=== PATIENT | female | born 1945 | race Caucasian/White ===

== ENCOUNTER 2016-11-13 13:49 | Observation (INO) | payer OTHER, MEDICARE ==
[~2016-11-13] VITALS: Ht 154.9 cm; Wt 54.9 kg
--- NOTE | ~2016-11-13 | EKG ---
[place] [address] [address] [address] ELECTROCARDIOGRAM REPORT Name: CLAU CASTILLO Room #: 412-P [facility]..#: [id number] Admission: 11/13/16 Attend Phys: Hari Garzon DO Discharge: 11/14/16 Date of : 49 Report #: [id number] THIS REPORT FOR: //name// [facility] ED Test Date: 2016-11-13 Test Time: 14:16:10 Pat Name: CLAU CASTILLO Department: Room: 412 Gender: F Health Program Director: MZOOK : 1945 Requested By: Chelly Clifton Order Number: [id number] MD: Marc Bedoya Measurements Intervals [place] Rate: 79 P: 43 KS: 128 QRS: -14 QRSD: 108 T: 27 QT: 471 QTc: 541 Interpretive Statements Sinus rhythm Biatrial enlargement Left ventricular hypertrophy Artifact Electronically Signed On 11-15-2016 8:52:18 FILEMAKER DEVELOPER by Marc Bedoya [email or web address] <ELECTRONICALLY SIGNED> By: Marc Bedoya MD 11/15/16 0852 D: 02/1415 15 Marc Bedoya MD /JANIA
[~2016-11-13 13:49] MED LIST: ADDERALL 30 MG30 MG PO; ADULT LOW DOSE81 MG PO; ALBUTEROL2.5 MG/0.5 INH; ALPRAZOLAM 0.50.5 M1 PO; ASPIR 8181 M1 PO; CIPRO250 M1 PO; COLACE100 MG PO; FLOMAX0.4 MG PO; FOLIC ACID1 MG PO; HYDROCODONE-AP1 EAC6 PO; IBUPROFEN 400400 M1 PO; IRON325 PO; LEVAQUIN 750 M750 MG PO; METAXALONE800 MG PO; MIRALAX17 GM PO; NORVASC5 M1 PO; OXYCODONE HCL10 MG PO; OXYCONTIN10 M1 PO; OXYCONTIN20 M1 PO; PERCOCET 10-321 EACH PO; PREDNISONE 20 M20 MG PO; PRILOSEC 20 MG20 MG PO; PROZAC20 MG PO; ROXICODONE5 MG PO; TESSALON PERLE100 MG PO; TUMS PO; WELLBUTRIN 100100 MG; XANAX 0.5 MG0.5 MG PO
[2016-11-13 13:50] VITALS: BP 144/77
[2016-11-13 14:15] LABS: HEMATOCRIT 41.2 % (37.0-47.0); HEMOGLOBIN 13.5 gm/dL (12.0-15.0); MCH 28.5 pg (26.0-34.0); MCHC 32.8 g/dL (28.0-37.0); MCV 86.8 fL (80.0-100.0); PLATELET COUNT 209 thou/uL (150-400); RBC 4.74 mil/uL (4.20-5.00); RDW 15.3 % (10.5-14.5); WBC 5.7 thou/uL (4.0-11.0)
[2016-11-13 14:28] LABS: ANION GAP 9 mmol/L (7-16); BUN 20 mg/dL (7-18); CALCIUM 9.4 mg/dL (8.5-10.1); CHLORIDE 103 mmol/L (98-107); CO2 28 mmol/L (21-32); CREATININE 0.9 mg/dL (0.6-1.3); GLUCOSE 105 mg/dL (70-99); POTASSIUM 4.4 mmol/L (3.5-5.1); SODIUM 140 mmol/L (136-145)
[2016-11-13 14:29] LABS: MANUAL DIFF YES
[2016-11-13 14:35] LABS: ALBUMIN 3.6 g/dL (3.4-5.0); ALKALINE PHOSPHATASE 103 U/L (46-116); DIRECT BILIRUBIN < 0.1 mg/dL (<0.1-0.3); NT-PRO BRAIN NAT PEPTIDE 153 pg/mL (<300); SGOT 20 U/L (15-37); SGPT 29 U/L (30-65); TOTAL BILIRUBIN 0.4 mg/dL (<0.1-1.0); TOTAL PROTEIN 6.9 g/dL (6.4-8.2); TROPONIN-I < 0.04 ng/mL (<0.04-0.07)
[2016-11-13 15:07] LABS: ABSOLUTE NEUTROPHILS 2.8 thou/uL (1.4-8.2); TOTAL CELL COUNT 100
[2016-11-13 16:40] VITALS: BP 136/65
[2016-11-13 17:35] VITALS: BP 118/50
[2016-11-13 19:23] LABS: URINE BILIRUBIN NEGATIVE (Negative); URINE BLOOD NEGATIVE (Negative); URINE COLOR YELLOW; URINE GLUCOSE-RANDOM* NEGATIVE (Negative); URINE KETONES NEGATIVE (Negative); URINE LEUKOCYTES-REFLEX NEGATIVE (Negative); URINE PROTEIN (DIPSTICK) NEGATIVE (Negative); URINE SPECIFIC GRAVITY 1.015 (1.003-1.035); URINE UROBILINOGEN 0.2 E.U./dl (0.2-1.0)
[2016-11-13 19:50] VITALS: BP 135/63
[2016-11-14 02:10] LABS: HEMATOCRIT 40.6 % (37.0-47.0); HEMOGLOBIN 13.3 gm/dL (12.0-15.0); MCH 28.9 pg (26.0-34.0); MCHC 32.8 g/dL (28.0-37.0); MCV 88.1 fL (80.0-100.0); PLATELET COUNT 183 thou/uL (150-400); RBC 4.61 mil/uL (4.20-5.00); RDW 15.3 % (10.5-14.5); WBC 6.4 thou/uL (4.0-11.0)
[2016-11-14 02:12] LABS: MANUAL DIFF YES
[2016-11-14 02:19] LABS: CALCIUM 9.7 mg/dL (8.5-10.1); CREATININE 1.1 mg/dL (0.6-1.3); POTASSIUM 4.3 mmol/L (3.5-5.1)
[2016-11-14 03:50] VITALS: BP 137/67
[2016-11-14 05:42] LABS: ABSOLUTE NEUTROPHILS 2.8 thou/uL (1.4-8.2); ANISOCYTOSIS SLIGHT; TOTAL CELL COUNT 100
[2016-11-14 08:00] VITALS: BP 144/84
[2016-11-14 15:21] VITALS: BP 144/84
== END 2016-11-14 17:03 | disposition home or self-care (01) ==
LOC: ER 13:49 → EROBS 16:20 → 4N 16:41
PROVIDERS: Emergency Medicine; Family Medicine
DX: J96.11 Chronic respiratory failure with hypoxia (principal); J98.4 Other disorders of lung; S27.399A Other injuries of lung, unspecified, initial encounter; R53.1 Weakness; R06.00 Dyspnea, unspecified; E83.52 Hypercalcemia; M54.5 Low back pain; G89.29 Other chronic pain; K85.90 Acute pancreatitis without necrosis or infection, unspecified; J18.9 Pneumonia, unspecified organism

== ENCOUNTER → 2016-12-23 | Outpatient (CLI) | payer OTHER, MEDICARE | LOC: RAD 16:44 | DX: M48.54XA Collapsed vertebra, not elsewhere classified, thoracic region, initial encounter for fracture (principal); M48.56XA Collapsed vertebra, not elsewhere classified, lumbar region, initial encounter for fracture; M41.85 Other forms of scoliosis, thoracolumbar region; M54.6 Pain in thoracic spine; M54.5 Low back pain ==

== ENCOUNTER 2017-09-19 18:37 | Emergency (ER) | payer OTHER, MEDICARE ==
[~2017-09-19] VITALS: Ht 152.4 cm; Wt 58.5 kg
--- NOTE | ~2017-09-19 | EKG ---
[address] [address] ELECTROCARDIOGRAM REPORT Name: CLAU CASTILLO [id number] Admission: 09/19/17 Attend Phys: Discharge: 09/19/17 Date of : 49 Report #: [id number] THIS REPORT FOR: //name// 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 : 1945 Requested By: Alan Honeycutt Order Number: [id number] MD: Marc Bedoya Measurements Intervals [place] Rate: 89 P: 60 KS: 137 QRS: 15 QRSD: 122 T: 18 QT: 405 QTc: 493 Interpretive Statements Sinus rhythm Nonspecific intraventricular conduction delay Minimal ST depression, lateral leads Compared to ECG 11/13/2016 14:16:10 Intraventricular conduction delay now present ST (T wave) deviation now present Atrial abnormality no longer present Left ventricular hypertrophy no longer present Electronically Signed On 09-19-2017 22:14:02 OPTOMETRY ASSISTANT by Marc Bedoya [email or web address] <ELECTRONICALLY SIGNED> By: Marc Bedoya MD 09/19/17 2214 1845 1845 Marc Bedoya MD /EPI
[~2017-09-19 18:37] MED LIST changes: -WELLBUTRIN 100100 MG; +WELLBUTRIN 100100 MG PO
[2017-09-19] MEDS ORDERED: BETIMOL5 ML OPHTHALMIC (19:59)
[2017-09-19] MEDS ORDERED: GABAPENTIN 100100 MG PO (20:00)
[2017-09-19] MEDS ORDERED: HEPARIN 5,5000 UNIT3 SUBQ (20:01)
[2017-09-19] MEDS ORDERED: ATORVASTATIN CA80 MG PO (20:02)
[2017-09-19 20:03] VITALS: BP 140/69
[2017-09-19 20:05] LABS: HEMATOCRIT 37.1 % (37.0-47.0); HEMOGLOBIN 12.5 gm/dL (12.0-15.0); MCH 29.3 pg (26.0-34.0); MCHC 33.6 g/dL (28.0-37.0); RBC 4.27 mil/uL (4.20-5.00); RDW 13.7 % (10.5-14.5); WBC 6.8 thou/uL (4.0-11.0)
[2017-09-19 20:12] LABS: CALCIUM 9.1 mg/dL (8.5-10.1); CREATININE 0.7 mg/dL (0.6-1.0); POTASSIUM 3.7 mmol/L (3.5-5.1)
[2017-09-19] MEDS ORDERED: ZANTAC 150MG T150 MG PO (20:18)
[2017-09-19] MEDS ORDERED: PERCOCET PO (20:18)
[2017-09-19] MEDS ORDERED: PROMETHAZINE/C118 ML PO (20:33)
[2017-09-19] MEDS ORDERED: ZPAK PO (20:33)
[2018-03-15] MEDS ORDERED: DESONIDE 0.05%60 M1 TOP (13:23)
== END 2017-09-19 20:52 | disposition home or self-care (01) ==
LOC: ER 18:37
PROVIDERS: Emergency Medicine
DX: J06.9 Acute upper respiratory infection, unspecified (principal); Z90.49 Acquired absence of other specified parts of digestive tract; Z90.710 Acquired absence of both cervix and uterus; Z88.2 Allergy status to sulfonamides; Z88.1 Allergy status to other antibiotic agents

== ENCOUNTER 2017-09-22 16:27 | Emergency (ER) | payer OTHER, MEDICARE ==
[~2017-09-22] VITALS: Ht 152.4 cm; Wt 59.0 kg
--- NOTE | ~2017-09-22 | EKG ---
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: MZOOK : 1945 Requested By: Boston Krishnamurthy Order Number: [id number] MD: Marc Bedoya Measurements Intervals [place] Rate: 84 P: 38 MD: 135 QRS: -15 QRSD: 99 T: 17 QT: 445 QTc: 527 Interpretive Statements Sinus rhythm Probable left atrial enlargement Left ventricular hypertrophy Borderline T abnormalities, inferior leads Electronically Signed On 09-22-2017 23:13:05 EMERGENCY ROOM TECHNICIAN by Marc Bedoya [email or web address] <ELECTRONICALLY SIGNED> By: Marc Bedoya MD 09/22/17 2313 1710 1710 MD CARLOS Graham
[~2017-09-22 16:27] MED LIST changes: +ATORVASTATIN CA80 MG PO; +BETIMOL5 ML OPHTHALMIC; +GABAPENTIN 100100 MG PO; +HEPARIN 5,5000 UNIT3 SUBQ; +PERCOCET PO; +PROMETHAZINE/C118 ML PO; +ZANTAC 150MG T150 MG PO; +ZPAK PO
[2017-09-22 17:32] LABS: ABSOLUTE NEUTROPHILS 4.9 thou/uL (1.4-8.2); BASOPHILS 0.6 % (0.0-2.0); EOSINOPHILS 1.3 % (0.0-3.0); HEMATOCRIT 37.6 % (37.0-47.0); HEMOGLOBIN 12.6 gm/dL (12.0-15.0); LYMPHOCYTES 21.4 % (24.0-44.0); MCH 28.9 pg (26.0-34.0); MCHC 33.4 g/dL (28.0-37.0); MCV 86.4 fL (80.0-100.0); MONOCYTES 8.9 % (1.0-8.0); PLATELET COUNT 227 thou/uL (150-400); POLYS 67.8 % (36.0-66.0); RBC 4.35 mil/uL (4.20-5.00); RDW 13.4 % (10.5-14.5); WBC 7.3 thou/uL (4.0-11.0)
[2017-09-22 17:41] LABS: ANION GAP 10 mmol/L (7-16); BUN 16 mg/dL (7-18); CALCIUM 9.1 mg/dL (8.5-10.1); CHLORIDE 103 mmol/L (98-107); CO2 26 mmol/L (21-32); CREATININE 0.6 mg/dL (0.6-1.0); GLUCOSE 96 mg/dL (74-106); POTASSIUM 3.8 mmol/L (3.5-5.1); SODIUM 139 mmol/L (136-145)
[2017-09-22 17:49] LABS: ALBUMIN 3.5 g/dL (3.4-5.0); LIPASE 101 U/L (73-393); SGOT 21 U/L (15-37); SGPT 28 U/L (30-65); TOTAL BILIRUBIN 0.3 mg/dL (<0.1-1.0); TOTAL PROTEIN 6.9 g/dL (6.4-8.2); TROPONIN-I < 0.04 ng/mL (<0.06)
[2017-09-22 18:02] LABS: URINE BILIRUBIN NEGATIVE (Negative); URINE BLOOD NEGATIVE (Negative); URINE CLARITY SL CLOUDY; URINE COLOR YELLOW; URINE GLUCOSE-RANDOM* NEGATIVE (Negative); URINE KETONES NEGATIVE (Negative); URINE LEUKOCYTES-REFLEX NEGATIVE (Negative); URINE NITRITE-REFLEX NEGATIVE (Negative); URINE PROTEIN (DIPSTICK) NEGATIVE (Negative); URINE UROBILINOGEN 0.2 E.U./dl (0.2-1.0)
[2017-09-22] MEDS ORDERED: TESSALON PERLE100 MG PO (19:11)
[2017-09-22] MEDS ORDERED: PERCOCET PO (19:11)
[2017-09-22 19:17] VITALS: BP 143/78
[2018-03-15] MEDS ORDERED: DESONIDE 0.05%60 M1 TOP (13:23)
== END 2017-09-22 19:45 | disposition home or self-care (01) ==
LOC: ER 16:27
PROVIDERS: Emergency Medicine
DX: S30.1XXA Contusion of abdominal wall, initial encounter (principal); J20.9 Acute bronchitis, unspecified; J98.4 Other disorders of lung; Z90.49 Acquired absence of other specified parts of digestive tract; Z90.710 Acquired absence of both cervix and uterus; Z88.2 Allergy status to sulfonamides; Z88.8 Allergy status to other drugs, medicaments and biological substances; Z87.891 Personal history of nicotine dependence

== ENCOUNTER → 2017-09-30 | Outpatient (CLI) | payer OTHER, MEDICARE ==
[~2017-09-30] MED LIST changes: +DESONIDE 0.05%60 M1 TOP
== END ==
LOC: RAD 17:00
DX: J84.9 Interstitial pulmonary disease, unspecified (principal)

== ENCOUNTER → 2017-10-08 | Outpatient (CLI) | payer OTHER, MEDICARE | LOC: SLEEPLAB 15:24 | DX: G47.33 Obstructive sleep apnea (adult) (pediatric) (principal) ==

== ENCOUNTER → 2017-10-12 | Outpatient (CLI) | payer OTHER, MEDICARE | LOC: CAT 12:39 | DX: M48.54XA Collapsed vertebra, not elsewhere classified, thoracic region, initial encounter for fracture (principal); R91.1 Solitary pulmonary nodule; J43.8 Other emphysema; R91.8 Other nonspecific abnormal finding of lung field; K75.3 Granulomatous hepatitis, not elsewhere classified; J84.9 Interstitial pulmonary disease, unspecified; G47.30 Sleep apnea, unspecified; Z90.49 Acquired absence of other specified parts of digestive tract ==

== ENCOUNTER → 2017-12-06 | Outpatient (CLI) | payer OTHER, MEDICARE | LOC: RAD 12:53 | DX: M25.561 Pain in right knee (principal); M25.562 Pain in left knee ==

== ENCOUNTER → 2018-03-23 | Outpatient (CLI) | payer OTHER, MEDICARE | LOC: MRI 10:16 | DX: M47.896 Other spondylosis, lumbar region (principal); M41.86 Other forms of scoliosis, lumbar region; G89.29 Other chronic pain; Z87.311 Personal history of (healed) other pathological fracture ==

== ENCOUNTER 2018-09-25 15:23 | Emergency (ER) | payer OTHER, MEDICARE ==
[~2018-09-25] VITALS: Ht 157.5 cm; Wt 56.7 kg
[2018-09-25 16:20] LABS: HEMATOCRIT 36.6 % (37.0-47.0); HEMOGLOBIN 12.1 gm/dL (12.0-15.0); MCH 29.1 pg (26.0-34.0); MCHC 33.1 g/dL (28.0-37.0); MCV 87.9 fL (80.0-100.0); RBC 4.16 mil/uL (4.20-5.00); RDW 13.8 % (10.5-14.5); WBC 6.6 thou/uL (4.0-11.0)
[2018-09-25 16:26] LABS: BE(vivo) -0.5 mmol/L (-2 to +3); HCO3 24.1 mmol/L (22.0-26.0); PCO2 39.1 mmHg (35.0-45.0); PO2 106.5 mmHg (80.0-100.0); pH 7.407 (7.360-7.450); sO2 97.9 % (92.0-98.0)
[2018-09-25 16:27] LABS: ANION GAP 9 mmol/L (7-16); BUN 14 mg/dL (7-18); CALCIUM 9.5 mg/dL (8.5-10.1); CHLORIDE 102 mmol/L (98-107); CO2 26 mmol/L (21-32); GLUCOSE 149 mg/dL (74-106); POTASSIUM 3.9 mmol/L (3.5-5.1); SODIUM 137 mmol/L (136-145)
[2018-09-25 16:37] LABS: TROPONIN-I <0.06 ng/mL (<0.06)
[2018-09-25 17:52] VITALS: BP 130/66
[2018-09-25] MEDS ORDERED: PREDNISONE 10 M10 M1 PO (17:57)
[2018-09-25] MEDS ORDERED: DOXYCYCLINE 10100 MG PO (17:57)
--- NOTE | 2018-09-26 07:55 | EKG ---
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 Training: [facility] : 1945 Requested By: Db Vasquez Order Number: [id number] MD: Wilbert Bains Measurements Intervals [place] Rate: 97 P: 41 HI: 138 QRS: -13 QRSD: 99 T: 25 QT: 412 QTc: 524 Interpretive Statements Sinus rhythm Ventricular premature complex RSR' in V1 or V2, right VCD Nonspecific ST and T wave abnormality Prolonged QT interval Compared to ECG 09/22/2017 17:10:56 Ventricular premature complex(es) now present Electronically Signed On 09-26-2018 7:55:02 SURFACE LAY OUT TECHNICIAN by Wilbert Bains [email or web address] <ELECTRONICALLY SIGNED> By: Wilbert Bains MD, [facility] 09/26/18 0755 1614 1614 Wilbert Bains MD, [facility] /EPI
== END 2018-09-25 19:51 | disposition home or self-care (01) ==
LOC: ER 15:23
PROVIDERS: Emergency Medicine
DX: J84.115 Respiratory bronchiolitis interstitial lung disease (principal); Z87.891 Personal history of nicotine dependence; Z88.1 Allergy status to other antibiotic agents; Z88.2 Allergy status to sulfonamides; Z90.49 Acquired absence of other specified parts of digestive tract; Z90.710 Acquired absence of both cervix and uterus

== ENCOUNTER → 2018-12-14 | Outpatient (CLI) | payer OTHER, MEDICARE ==
[~2018-12-14] MED LIST changes: +DOXYCYCLINE 10100 MG PO; +OSTERA TABLET1 EAC1 PO; +PREDNISONE 10 M10 M1 PO; +VOLTAREN GEL 1100 G2 TOP
== END ==
LOC: RAD 13:16
DX: R06.02 Shortness of breath (principal); M41.85 Other forms of scoliosis, thoracolumbar region

== ENCOUNTER 2018-12-15 17:15 | Inpatient (IN) | payer OTHER, MEDICARE ==
[~2018-12-15] VITALS: Ht 152.4 cm; Wt 59.0 kg
[~2018-12-15 17:15] MED LIST changes: -OSTERA TABLET1 EAC1 PO; -VOLTAREN GEL 1100 G2 TOP
[2018-12-15 17:17] VITALS: BP 154/72
[2018-12-15 17:45] LABS: ABSOLUTE NEUTROPHILS 4.1 thou/uL (1.4-8.2); BASOPHILS 1.1 % (0.0-2.0); EOSINOPHILS 5.2 % (0.0-3.0); HEMATOCRIT 38.9 % (37.0-47.0); HEMOGLOBIN 12.7 gm/dL (12.0-15.0); LYMPHOCYTES 25.5 % (24.0-44.0); MCH 28.3 pg (26.0-34.0); MCHC 32.7 g/dL (28.0-37.0); MCV 86.5 fL (80.0-100.0); MONOCYTES 10.2 % (1.0-8.0); PLATELET COUNT 223 thou/uL (150-400); RBC 4.49 mil/uL (4.20-5.00); RDW 14.3 % (10.5-14.5)
[2018-12-15 17:56] LABS: ANION GAP 8 mmol/L (7-16); BUN 20 mg/dL (7-18); CALCIUM 10.1 mg/dL (8.5-10.1); CHLORIDE 103 mmol/L (98-107); CO2 28 mmol/L (21-32); GLUCOSE 98 mg/dL (74-106); SODIUM 139 mmol/L (136-145)
[2018-12-15 18:04] LABS: ALBUMIN 3.8 g/dL (3.4-5.0); MAGNESIUM 1.7 mg/dL (1.8-2.4); SGOT 20 U/L (15-37); SGPT 25 U/L (30-65); TOTAL BILIRUBIN 0.3 mg/dL (<0.1-1.0); TOTAL PROTEIN 7.2 g/dL (6.4-8.2); TROPONIN-I <0.06 ng/mL (<0.06)
[2018-12-15 18:42] VITALS: BP 129/79
[2018-12-15 18:47] VITALS: BP 123/76
[2018-12-15 19:05] VITALS: BP 149/93
[2018-12-15] MEDS ORDERED: OSTERA TABLET1 EAC1 PO (20:23)
[2018-12-16 04:28] VITALS: BP 126/76
[2018-12-16] MEDS ORDERED: COLACE100 MG PO (04:28)
[2018-12-16] MEDS ORDERED: VOLTAREN GEL 1100 G2 TOP (04:29)
[2018-12-16] MEDS ORDERED: MIRALAX17 GM PO (04:29)
[2018-12-16 04:55] LABS: HEMATOCRIT 35.8 % (37.0-47.0); HEMOGLOBIN 11.7 gm/dL (12.0-15.0); MCH 28.6 pg (26.0-34.0); MCHC 32.6 g/dL (28.0-37.0); MCV 87.7 fL (80.0-100.0); RBC 4.08 mil/uL (4.20-5.00); RDW 14.3 % (10.5-14.5); WBC 5.1 thou/uL (4.0-11.0)
[2018-12-16 05:12] LABS: ANION GAP 6 mmol/L (7-16); BUN 24 mg/dL (7-18); CALCIUM 9.4 mg/dL (8.5-10.1); CHLORIDE 103 mmol/L (98-107); CO2 31 mmol/L (21-32); GLUCOSE 89 mg/dL (74-106); POTASSIUM 4.1 mmol/L (3.5-5.1); SODIUM 140 mmol/L (136-145); TROPONIN-I <0.06 ng/mL (<0.06)
--- NOTE | 2018-12-16 07:32 | NUR ---
PATIENT IS ALERT AND ORIENTED. PATIENT WAS SBA BUT IS NOW UP AD CORRINE. PATIENT DENIES ANY CHEST PAIN. PATIENT HAS CHRONIC NECK AND BACK PAIN. PATIENT IS ON 2L NC. PATIENT IS NSR ON TELE. PATIENT IS RESTING COMFORTABLY IN BED. WCM. PATIENT IS PROGRESSING TO GOALS
[2018-12-16 08:00] VITALS: BP 132/74
--- NOTE | 2018-12-16 10:21 | EKG ---
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: 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 : 1945 Requested By: Angelina Jolley Order Number: [id number] MD: Wilbert Bains Measurements Intervals [place] Rate: 99 P: 43 [place]: 141 QRS: -13 QRSD: 99 T: 16 QT: 385 QTc: 495 Interpretive Statements Sinus rhythm Poor R wave progression Nonspecific ST segment abnormality Compared to ECG 09/25/2018 16:14:36 Poor R wave progression is now present Ventricular premature complex(es) no longer present Electronically Signed On 12-16-2018 10:21:31 CDT by Wilbert Bains [email or web address] ��������������������������������������������� <ELECTRONICALLY SIGNED> ���������������������������������������� By: Wilbert Bains MD, [facility] ��������������������������������������������� 12/16/18 1021 1720 1720 Wilbert Bains MD, [facility] /EPI
--- NOTE | 2018-12-16 12:52 | 2DMMODE ---
[place] [address] [facility] [place] [address] 2 D/M-MODE ECHOCARDIOGRAM Name: CLAU CASTILLO Room #: 359-P ADM IN ..#: [id number] ������������� Admission: 12/15/18 ������������� Attend Phys: Masha Cantu MD Discharge: ��� ������������� ��� Date of : 49 Date of Service: 12/16/18 1252 �� Report #: [id number] �������� ��������������������������������������������[id number] THIS REPORT FOR: //name// APPROVED REPORT Study performed: 12/16/2018 10:32:05 EXAM: Comprehensive 2D, Doppler, and color-flow Echocardiogram Patient Location: Bedside Room #: 359 Status: on-call BSA: 1.55 HR: 83 bpm BP: 132/74 mmHg Rhythm: NSR Other Information Study Quality: Adequate Indications Dyspnea Chest Pain Hypercalcemia Sarcoidosis Interstitial Lung Disease 2D Dimensions IVSd: 9.76 (7-11mm) LVOT Diam: 19.00 (18-24mm) LVDd: 49.40 mm PWd: 10.03 (7-11mm) Ascending Ao: 27.15 (22-36mm) LVDs: 43.17 (25-40mm) Aortic Root: 26.72 mm LV Single Plane 4CH: 44.82 % LV Single Plane 2CH: 43.68 % Biplane EF: 43.6 % Volumes Left Atrial Volume (Systole) Single Plane 4CH: 44.54 mL Single Plane 2CH: 47.71 mL LA ESV Index: 32.00 mL/m2 Aortic Valve AoV Peak Tyrone.: 1.95 m/s AO Peak Gr.: 16.22 mmHg LVOT Max P.58 mmHg LVOT Max V: 1.18 m/s [facility] [address] [place] [address] 2 D/M-MODE ECHOCARDIOGRAM Name: CLAU CASTILLO Room #: 359-P [facility]#: [id number] ������������� Admission: 12/15/18 ������������� Attend Phys: Masha Cantu MD Discharge: ��� ������������� ��� Date of : 49 Date of Service: 12/16/18 1252 �� Report #: [id number] �������� ��������������������������������������������[id number] Vmax: 1.70 cm2 AI Vmax: 4.76 m/s AI [place]: 3.65 m/s2 AI PHT: 405.49 ms Mitral Valve E/A Ratio: 0.7 MV Decel. Time: 141.99 ms MV E Max Tyrone.: 1.41 m/s MV A Tyrone.: 1.98 m/s MV PHT: 41.18 ms IVRT: 76.12 ms TDI E/Lateral E': 28.20 E/Medial E': 28.20 Medial E' Tyrone.: 0.05 m/s Lateral E' Tyrone.: 0.05 m/s Pulmonary Valve PV Peak Tyrone.: 1.03 m/s PV Peak Gr.: 4.35 mmHg Pulmonary Vein P Vein S: 0.58 m/s P Vein A: 0.28 m/s P Vein D: 0.37 m/s P Vein A Dur.: 86.5 msec P Vein S/D Ratio: 1.57 Tricuspid Valve TR Peak Tyrone.: 2.83 m/s RAP Estimate: 7.00 mmHg TR Peak Gr.: 31.96 mmHg PA Pressure: 39.00 mmHg Left Ventricle The left ventricle is normal size. There is normal LV segmental wall motion. There is normal left ventricular wall thickness. Left ventricular systolic function is at the lower limits of normal. LVEF is 50%. Mild diastolic dysfunction is present (impaired relaxation pattern). Right Ventricle The right ventricle is normal size. The right ventricular systolic function is normal. Atria The left atrium size is normal. The right atrium size is normal. [address] [address] 2 D/M-MODE ECHOCARDIOGRAM Name: ANNACLAU Room #: 359-P [facility] IN [facility]#: [id number] ������������� Admission: 12/15/18 ������������� Attend Phys: Masha Cantu MD Discharge: ��� ������������� ��� Date of : 49 Date of Service: 12/16/18 1252 �� Report #: [id number] �������� ��������������������������������������������[id number] Aortic Valve The aortic valve is sclerotic. Moderate aortic regurgitation. There is no aortic valvular stenosis. Mitral Valve The mitral valve is normal in structure. Moderate mitral regurgitation. No evidence of mitral valve stenosis. Tricuspid Valve The tricuspid valve is normal in structure. Mild tricuspid regurgitation. The pulmonary artery pressure is 39 mmHg. Pulmonic Valve The pulmonary valve is normal in structure. Trace pulmonic regurgitation. Great Vessels The aortic root is normal in size. IVC is normal in size and collapses >50% with inspiration. Pericardium There is no pericardial effusion. <Conclusion> Left ventricular systolic function is at the lower limits of normal. There is normal LV segmental wall motion. LVEF is 50%. Mild diastolic dysfunction The aortic valve is sclerotic. Moderate aortic regurgitation, no stenosis The mitral valve is normal in structure. Moderate mitral regurgitation. Mild tricuspid regurgitation. The pulmonary artery pressure of 39 mmHg. There is no pericardial effusion. ��������������������������������������������� <ELECTRONICALLY SIGNED> ���������������������������������������� By: Wilbert Bains MD, FACC ��������������������������������������������� 12/16/18 1252 1252 125 Wilbert Bains MD, FACC /INF
[2018-12-16 16:30] VITALS: BP 153/71
--- NOTE | 2018-12-16 18:20 | NUR ---
PT DENIES CHEST PAIN THIS SHIFT...ECHO DONE WITH 50% EF...PLANS FOR STRESS TEST THIS TUESDAY...
[2018-12-16 19:43] VITALS: BP 141/73
--- NOTE | 2018-12-17 00:41 | NUR ---
PATIENT IS ALERT AND ORIENTED. PATIENT IS UP AD CORRINE. PATIENT IS ON 2L NC WHICH IS BASELINE. PATIENTS LBM WAS THE 27TH STOOL SOFTENER AND MIRALAX WAS GIVEN. PATIENT WAS NAUSIOUS ZOFRAN WAS GIVEN. PATIENT IS PENDING STRESS TEST ON TUESDAY. PATIENT IS RESTING COMFORTABLY IN BED. WCM. PATIENT IS PROGRESSING TO GOALS. NO CHEST PAIN NOTED.
[2018-12-17 03:19] VITALS: BP 121/68
[2018-12-17 07:20] VITALS: BP 109/64
[2018-12-17 12:02] VITALS: BP 109/64
--- NOTE | 2018-12-17 16:58 | HC ---
[facility] [place] [address] CONSULTATION Name: ANNACLAU A Room #: 359-P [facility] IN M.R.#: [id number] Admission: 12/15/18 ������������������ Attend Phys: Masha Cantu MD Discharge: 12/17/18 ������������������ Date of : 49 Report #: [id number] THIS REPORT FOR: //name// CC: Alexandra Cantu DATE OF SERVICE: 12/16/2018 PRIMARY CARE PHYSICIAN: Dr. Alexandra Smith. REFERRAL PHYSICIAN: Dr. Soler. REASON FOR REFERRAL: Dyspnea. HISTORY OF PRESENT ILLNESS: The patient is a 73-year-old white female who presents to the ED with progressive dyspnea and chest pain. A pulmonary consultation was requested. The patient is known to this physician with history of chronic pulmonary problems. 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 She was being treated for osteomyelitis around 07/2014. She was felt to have hypersensitivity pneumonitis. She was on corticosteroids for several months. Infiltrates did improve over time. In 04/2016, the patient also developed hypocalcemia. Bone marrow revealed noncaseating granuloma. She was felt to have sarcoidosis. However, because of her severe osteoporosis related to previous steroid treatment, patient had deferred further corticosteroid treatment. Follow up calcium level was felt to be relatively stable. She also had an extensive second opinion evaluation at [facility] at [place], [place]. Following extensive workup, the patient was found to have mild bilateral bronchiectasis, mild interstitial lung disease, PFTs showing mild restrictive ventilatory defect. In 09/2017, she was found to have lung nodule in the left upper lobe. This was noticed while at [place], [place]. She then had a PET/CT, which was unremarkable. Followup CT chest showed stable lung nodule. This was felt to be benign given normal PET/CT findings. The patient also underwent a sleep study recommended by [facility] ([place], [place]). The sleep study performed locally showed mild JONATHAN, AHI around less than 6 events per hour. She did have moderate desaturation. However, the patient declined CPAP therapy. She is on O2 at night. [facility] [address] [place] [address] CONSULTATION Name: CLAU CASTILLO Room #: 359-P [facility] IN M.R.#: [id number] Admission: 12/15/18 ������������������ Attend Phys: Masha Cantu MD Discharge: 12/17/18 ������������������ Date of : 49 Report #: [id number] As a result of interstitial lung disease, she is requiring 2 liters of O2 chronically. She has chronic pain due to osteoporosis along with compression vertebral fractures. She has severe reflux disease and is currently on Prilosec twice a day as recommended. She was just seen in the office one day prior to presentation in the ED. She was without chest pain at that time. Chest pain occurred the following day. This occurred while she was walking to her kitchen. This was left-sided. Pain radiated to her back. With severe chest pain, she called EMS. Initial workup in the ER was unremarkable. She did not have any evidence of acute ischemic changes by EKG findings. Troponin was normal. Today, she is asymptomatic. Chest pain has resolved. Otherwise, no fever, night sweats, or chills. PAST MEDICAL HISTORY: As mentioned above. It also includes tummy tuck surgery, tonsillectomy, hysterectomy, cholecystectomy, bilateral cataract surgery, bone marrow biopsy as mentioned above. ALLERGIES: DAPTOMYCIN RESULTING IN INTERSTITIAL LUNG DISEASE; LASIX, SEVERE SKIN IRRITATION; HYDROCHLOROTHIAZIDE, REACTIONS UNKNOWN; SULFA DRUGS, REACTIONS UNKNOWN. HOME MEDICATIONS: Lists are reviewed, which include Norvasc, Adderall, Wellbutrin, Zantac, Percocet, steroid lotion. FAMILY HISTORY: Notable for bladder cancer in the mother, who at the age of 80. Father had lung cancer at the age of 80. Brother had AIDS and lymphoma. SOCIAL HISTORY: She is . of mesothelioma. She has smoked, but quit in 1979. She drinks socially. REVIEW OF SYSTEMS: As mentioned above, otherwise 10-point system review negative. PHYSICAL EXAMINATION: GENERAL: She is awake, alert, in no distress. VITAL SIGNS: Temperature is 98 degrees Fahrenheit, pulse is 80, respiratory rate is 16, blood pressure 130/74 mmHg, saturation 100%. HEENT: Normocephalic, atraumatic. NECK: Supple, without lymphadenopathy or thyromegaly. [address] [address] CONSULTATION Name: CLAU CASTILLO Room #: 359-P [facility] IN M.R.#: [id number] Admission: 12/15/18 ������������������ Attend Phys: Masha Cantu MD Discharge: 12/17/18 ������������������ Date of : 49 Report #: [id number] CHEST: Breath sounds are good with few scattered crackles. No wheezes. CARDIOVASCULAR: Normal S1, S2. There are no murmurs or gallop. There is no JVD, no carotid bruit. Pulses are 2+/4+ bilaterally. ABDOMEN: Soft, nontender, no organomegaly or masses felt. GENITOURINARY: Deferred. RECTAL: Deferred. EXTREMITIES: There is no edema, cyanosis or clubbing. LABORATORY DATA: Chest x-ray shows chronic bilateral mild interstitial infiltrates. Otherwise, no acute findings. Echocardiogram shows normal LV function, ejection fraction 50%, moderate mitral regurgitation, pulmonary artery pressure measured 39 mmHg, otherwise unremarkable. EKG shows poor R-wave progression, nonspecific ST-T wave changes, ionized calcium is 5.6. BNP is 540. Troponin is normal. IMPRESSION: 1. Chest pain, currently undergoing cardiac workup. 2. Dyspnea, multifactorial, stable. 3. Drug-induced interstitial lung disease as mentioned above. That is stable. The patient has been off corticosteroids over the past year or so. 4. Chronic hypoxic respiratory failure, on 2 liters of O2 chronically. She also has nocturnal hypoxia due to sleep apnea for which she is on nocturnal O2. 5. Sarcoidosis, bone marrow involvement, manifested by hypocalcemia. Ionized calcium is borderline normal. We will continue to monitor. The patient refused corticosteroid therapy due to severe side effects. 6. Severe osteoporosis with compression fractures in the past along with chronic pain. 7. Severe gastroesophageal reflux, Prilosec 40 mg p.o. twice a day. 8. Mild obstructive sleep apnea, AHI around 6 events per hour, with low saturations 75%. The patient has deferred CPAP therapy. Currently on nocturnal O2 and also Adderall. 9. Benign left upper lobe nodule, previously noted 2014, stable 2018. PET scan in 2018 was unremarkable. 10. Progressive weakness and debility due to corticosteroids and chronic lung disease. Stable. 11. Arthritic changes in both hands. There is a question whether this may be related to sarcoidosis. She was scheduled to see tree scout at [facility]. I believe she has already made an appointment. Overall, the patient is felt to be fairly stable from pulmonary standpoint. I will await cardiac evaluation. No new recommendation pertaining her respiratory status at this time. DVT and GI prophylaxis recommended. [facility] [address] [place] [address] CONSULTATION Name: ANNACLAU Room #: 359-P [facility] IN .R.#: [id number] Admission: 12/15/18 ������������������ Attend Phys: Masha Cantu MD Discharge: 12/17/18 ������������������ Date of : 49 Report #: [id number] Thank you for this consultation. ��������������������������������������������� <ELECTRONICALLY SIGNED> ���������������������������������������� By: Aaron Bell MD ��������������������������������������������� 12/17/18 1658 1557 0521 Aaron Bell MD /nt
== END 2018-12-17 15:50 | disposition home or self-care (01) | DRG 313 ==
LOC: ER 17:15 → EROBS 18:20 → 3W 18:48
PROVIDERS: Nurse Practitioner Family; ADMIT Internal Medicine
DX: R07.89 Other chest pain (principal); J96.11 Chronic respiratory failure with hypoxia; I10 Essential (primary) hypertension; J70.4 Drug-induced interstitial lung disorders, unspecified; M81.0 Age-related osteoporosis without current pathological fracture; K21.9 Gastro-esophageal reflux disease without esophagitis; G47.33 Obstructive sleep apnea (adult) (pediatric); K44.9 Diaphragmatic hernia without obstruction or gangrene; D86.9 Sarcoidosis, unspecified; Z90.49 Acquired absence of other specified parts of digestive tract; Z99.81 Dependence on supplemental oxygen; Z98.41 Cataract extraction status, right eye; Z98.42 Cataract extraction status, left eye; Z90.710 Acquired absence of both cervix and uterus; Z88.2 Allergy status to sulfonamides; Z88.8 Allergy status to other drugs, medicaments and biological substances; Z87.891 Personal history of nicotine dependence; Z80.52 Family history of malignant neoplasm of bladder
CPT/HCPCS: 10080

== ENCOUNTER 2019-02-11 00:23 | Emergency (ER) | payer OTHER, MEDICARE ==
[~2019-02-11] VITALS: Ht 152.4 cm; Wt 55.8 kg
[~2019-02-11 00:23] MED LIST changes: +OSTERA TABLET1 EAC1 PO; +VOLTAREN GEL 1100 G2 TOP
[2019-02-11 01:09] LABS: ABSOLUTE NEUTROPHILS 7.2 thou/uL (1.4-8.2); BASOPHILS 0.5 % (0.0-2.0); EOSINOPHILS 2.6 % (0.0-3.0); HEMATOCRIT 38.4 % (37.0-47.0); HEMOGLOBIN 12.5 gm/dL (12.0-15.0); LYMPHOCYTES 12.9 % (24.0-44.0); MCH 28.2 pg (26.0-34.0); MCHC 32.5 g/dL (28.0-37.0); MCV 86.8 fL (80.0-100.0); MONOCYTES 7.6 % (1.0-8.0); PLATELET COUNT 199 thou/uL (150-400); POLYS 76.4 % (36.0-66.0); RBC 4.42 mil/uL (4.20-5.00); WBC 9.5 thou/uL (4.0-11.0)
[2019-02-11 01:10] LABS: ANION GAP 8 mmol/L (7-16); BUN 16 mg/dL (7-18); CALCIUM 9.6 mg/dL (8.5-10.1); CHLORIDE 104 mmol/L (98-107); CO2 28 mmol/L (21-32); CREATININE 0.9 mg/dL (0.6-1.0); GLUCOSE 109 mg/dL (74-106); SODIUM 140 mmol/L (136-145)
[2019-02-11 01:19] LABS: TROPONIN-I <0.06 ng/mL (<0.06)
[2019-02-11 03:58] VITALS: BP 121/67
--- NOTE | 2019-02-11 08:26 | EKG ---
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 : 1945 Requested By: Db Vasquez Order Number: [id number] MD: Alexei [place] Measurements Intervals [place] Rate: 97 P: 48 MS: 134 QRS: -21 QRSD: 101 T: 49 QT: 400 QTc: 508 Interpretive Statements Sinus rhythm Ventricular trigeminy Borderline left axis deviation Poor R-wave progression Prolonged QT interval Compared to ECG 12/15/2018 17:20:36 Ventricular premature complex(es) now present Prolonged QT interval now present ST (T wave) deviation no longer present Electronically Signed On 02-11-2019 8:26:05 CDT by Alexei [place] [email or web address] ��������������������������������������������� <ELECTRONICALLY SIGNED> ���������������������������������������� By: Alexei [place] MD ��������������������������������������������� 02/11/19 0826 1 1 Alexei Morton MD /EPI
== END 2019-02-11 04:01 | disposition home or self-care (01) ==
LOC: ER 00:23
PROVIDERS: Emergency Medicine
DX: R07.89 Other chest pain (principal); I10 Essential (primary) hypertension; G47.30 Sleep apnea, unspecified; D86.9 Sarcoidosis, unspecified; Z87.891 Personal history of nicotine dependence; Z88.8 Allergy status to other drugs, medicaments and biological substances; Z88.2 Allergy status to sulfonamides; Z90.89 Acquired absence of other organs; Z90.710 Acquired absence of both cervix and uterus; Z90.49 Acquired absence of other specified parts of digestive tract

== ENCOUNTER → 2019-04-18 | Outpatient (CLI) | payer OTHER, MEDICARE | LOC: RAD 13:54 | DX: M50.322 Other cervical disc degeneration at C5-C6 level (principal); M51.34 Other intervertebral disc degeneration, thoracic region; M51.36 Other intervertebral disc degeneration, lumbar region; M43.8X6 Other specified deforming dorsopathies, lumbar region; M12.88 Other specific arthropathies, not elsewhere classified, other specified site; M48.02 Spinal stenosis, cervical region; M43.16 Spondylolisthesis, lumbar region; M43.12 Spondylolisthesis, cervical region; M41.85 Other forms of scoliosis, thoracolumbar region; Z88.2 Allergy status to sulfonamides; Z88.8 Allergy status to other drugs, medicaments and biological substances; Z90.49 Acquired absence of other specified parts of digestive tract; Z87.39 Personal history of other diseases of the musculoskeletal system and connective tissue ==

== ENCOUNTER → 2019-05-03 | Outpatient (CLI) | payer OTHER | LOC: CAT 13:51 | DX: Z13.6 Encounter for screening for cardiovascular disorders (principal); E78.00 Pure hypercholesterolemia, unspecified; I25.10 Atherosclerotic heart disease of native coronary artery without angina pectoris; J84.9 Interstitial pulmonary disease, unspecified; I51.7 Cardiomegaly; M47.814 Spondylosis without myelopathy or radiculopathy, thoracic region; M41.84 Other forms of scoliosis, thoracic region ==

== ENCOUNTER → 2019-05-03 | Outpatient (CLI) | payer OTHER, MEDICARE | LOC: RAD 13:41 | DX: J84.9 Interstitial pulmonary disease, unspecified (principal); J47.9 Bronchiectasis, uncomplicated ==

== ENCOUNTER → 2019-05-14 | Outpatient (CLI) | payer OTHER, MEDICARE ==
[~2019-05-14] VITALS: Ht 152.4 cm; Wt 54.0 kg
[~2019-05-14] MED LIST changes: +CARVEDILOL12.5 MG PO; +LISINOPRIL10 MG PO; +OMEPRAZOLE40 MG PO; +OXYCODONE HCL E10 MG PO; +SPIRONOLACTONE25 M1 PO; +VITAMIN D2000 UNIT PO
--- NOTE | ~2019-05-14 | HPC ---
[facility] [place] [address] PAIN MANAGEMENT CONSULTATION Name: CLAU CASTILLO Room #: REG [facility].#: [id number] Admission: 05/14/19 Attend Phys: Carlos Pickens MD Discharge: Date of : 49 Report #: [id number] THIS REPORT FOR: //name// CC: RAÚL Pickens DATE OF SERVICE: 05/14/2019 CHIEF COMPLAINT: Cervicalgia, mid back pain, low back pain with history of multiple compression fractures and severe spondylosis. The patient is here today with a friend at the request of Dr. Bains and Dr. Smith for me to discuss pain management. She is an unfortunate 74-year-old who has chronic pain with multiple comorbidities. She suffers from congestive heart failure. She says her heart pump function is about 30% of normal. She is followed closely by Dr. Bains and is being treated with carvedilol. She is on vcltyu-zjf-uqxfa oxygen at 2 liters nasal cannula. She has diffuse spinal pain. She has pain in her neck with all range of motion, particularly with rotation. She has pain in her mid back and at the apex of a scoliotic change which is degenerative. She has multiple compression fractures of the lumbar spine. In 2013, she underwent surgery for an injured thumb. She suffered with postoperative infection and had a second surgery. She is being treated with daptomycin. While receiving intravenous antibiotics, she developed respiratory failure due to a reaction apparently to the antibiotic. She was hospitalized in the Intensive Care Unit. It sounds like she was on BiPAP for quite some time. She was treated aggressively with steroids for many months, 40 mg 4 times daily. 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 She may have also developed sarcoidosis. In the past, for her pain, she was treated with a single-level kyphoplasty, which provided little improvement. She has also seen at another Pain Clinic where a number of injections were undertaken, none of which were helpful. Today, she describes a continuous, constant, burning, shooting, aching sensation that is 10/10 on the intensity scale and multiple markings throughout the pain drawing. She does not have radiculopathy, either cervical or lumbar. No radiating leg pain other than some groin discomfort. MEDICATIONS: Oxycodone 5 mg 3 to 4 times daily, Adderall 20 mg daily, bupropion 150 mg b.i.d., carvedilol 12.5 mg b.i.d., Colace, diclofenac gel t.i.d., [address] [address] PAIN MANAGEMENT CONSULTATION Name: ANNACLAU BARTHOLOMEW Augustin Room #: REG [facility] Taylor#: [id number] Admission: 05/14/19 Attend Phys: Carlos Pickens MD Discharge: Date of : 49 Report #: [id number] lisinopril 10 mg daily, omeprazole 40 mg daily, spironolactone 25 mg, vitamin D 2000 units and oxygen 2 liters nasal cannula 24 x 7. ALLERGIES: DAPTOMYCIN IS LISTED A SENSITIVITY/ALLERGY. PAST MEDICAL HISTORY: The above-mentioned issues and problems developed from 2013 on. Prior to that time, she suffered from hypertension, COPD, kidney diseases, gastritis, depression and joint problems with arthritis. PAST SURGICAL HISTORY: Hysterectomy, tummy tuck 20 years ago, gallbladder surgery using an incision rather than laparoscopic approach, so it was prior to 1989, tonsillectomy as a child. SOCIAL HISTORY: She lives independently. She is . She has a friend with her today. She is retired. She denies use of tobacco or alcohol. PHYSICAL EXAMINATION: GENERAL: This is a pleasant female on oxygen. She appears somewhat short of breath even at rest. She moves from sitting-standing position independently and walks with a careful antalgic gait. She appears to be a fall risk. HEENT: Reveals pupils to be equal, round, reactive to light. EOMs are intact. Mucous membranes are moist. NECK: Range of motion is markedly limited in rotation, scmm-up-zvzi tilt. Flexion and extension are performed without too much limitation, but she has pain in all movements. Tenderness below the occiput. Tenderness along the paravertebral cervical muscles. CHEST: Clear to auscultation with distant breath sounds. CARDIAC: Rhythm is regular. ABDOMEN: Soft. MUSCULOSKELETAL: Examination of the spine reveals a scoliotic change of the thoracolumbar spine with convexity to the left. There is tenderness along the scoliosis along the paravertebral muscles, where there is some muscle spasm. Straight leg raising is negative. She has diffuse weakness of the lower extremities. IMAGING STUDIES: X-rays reviewed. Cervical spine shows cervical spondylosis with degenerative changes noted throughout the cervical spine. There is an anterolisthesis of C4 on C5, and multiple joints demonstrate facet arthropathy. The thoracic spine shows leftward ____ scoliosis, apex at T12-L1. There is a L1 kyphoplasty. Moderate degenerative disk disease is noted throughout the thoracic spine. The lumbar spine shows compression deformities of L2, L3, L4 and the kyphoplasty-treated L1. IMPRESSION: 1. Chronic spinal pain related to multiple levels of diffuse arthropathy, narrowing and degenerative disk disease as well as compression fractures. [address] [place] [address] PAIN MANAGEMENT CONSULTATION Name: CLAU CASTILLO Room #: REG [facility].#: [id number] Admission: 05/14/19 Attend Phys: Carlos Pickens MD Discharge: Date of : 49 Report #: [id number] 2. Congestive heart failure and cardiomyopathy. 3. Respiratory insufficiency, on nasal cannula oxygen. This is likely cardiac related. 4. Chronic kidney disease. 5. History of hypertension. 6. History of depression. RECOMMENDATIONS: I do not think there is an injection that will provide meaningful improvement. I have, therefore, moved away from interventional treatments to suggest better management with current medicines. She does get relief from oxycodone 5/325. Unfortunately, the duration of response is, as expected, 4-6 hours. She then is reaching for another tablet. She has denied any significant side effects from the medication, is grateful for the pain relief that it provides. RECOMMENDATION: Baseline of oxycodone at 10 mg b.i.d. with additional breakthrough 2-3 times a day, I think, would be the simplest way to start. We know that she tolerates oxycodone products. We could also consider a number of other long-acting opioids. We have had good success in many patients for whom we are concerned about the respiratory effects by transitioning to buprenorphine. There are several forms of this in patch, buccal films and pills. All have provided relief for some patients. There does appear to be a ceiling effect on the respiratory effects and we will consider that. They can be expensive, unfortunately, as can long-acting oxycodone. A prescription for oxycodone extended release 10 mg b.i.d. was ordered for her today. We will follow up in 1 month. By: [id number] [id number] Carlos Pickens MD /nt
[2019-05-14 14:35] VITALS: BP 115/69
--- NOTE | 2019-05-14 15:00 | NUR ---
Pain Clinic Assessment: 1. History of Osteoarthritis: SPINE History of Rheumatoid Arthritis: NONE 2. Height: 5 ft. 0 in. 152.4 cm. Weight: 119.0 lb. oz. 53.978 kg. Patient's BMI: 23.2 3. Vital Signs: BP: 115/69 Pulse: 87 Resp: 14 Temp: 02 Sat: 100 ECG Mon: 4. Pain Intensity: 10 5. Fall Risk: Dizziness: N Needs help standing or walking: Y Fallen in the last 3 months: N Fall risk comments: 6. Patient on Blood Thinner: None 7. History of Hypertension: Y 8. Opioid Therapy greater than 6 weeks: Y Opiate Contract Signed: 9. Risk Assessment Tool Provided: LOW-3 10. Functional Assessment Tool: 70/70 11. Recreational Drug Use: Never Drug Type: Tobacco Use: Never Smoker Tobacco Type: Amount or Packs/day: How Many Years: Alcohol Use: No Frequency: Quant:
== END ==
LOC: PAIN 06:56
DX: M54.2 Cervicalgia (principal); M54.5 Low back pain; I42.9 Cardiomyopathy, unspecified; F32.9 Major depressive disorder, single episode, unspecified; I13.0 Hypertensive heart and chronic kidney disease with heart failure and stage 1 through stage 4 chronic kidney disease, or unspecified chronic kidney disease; Z79.899 Other long term (current) drug therapy; Z88.8 Allergy status to other drugs, medicaments and biological substances

== ENCOUNTER 2019-08-30 15:35 | Inpatient (IN) | payer OTHER, MEDICARE ==
[~2019-08-30] VITALS: Ht 152.4 cm; Wt 52.6 kg
--- NOTE | ~2019-08-30 | HC ---
[facility] [place] [address] [place] [address] CONSULTATION Name: CLAU CASTILLO Room #: 437-P [facility] IN ..#: [id number] Admission: 08/30/19 Attend Phys: Milton Grullon MD Discharge: Date of : 49 Report #: [id number] THIS REPORT FOR: //name// CC: Milton Smith DATE OF SERVICE: 08/31/2019 REASON FOR CONSULTATION: Right hip fracture. HISTORY OF PRESENT ILLNESS: The patient is a 74-year-old female who ambulates with a walker due to multiple spinal compression fractures, when she fell in her kitchen. She denied loss of consciousness. Complains only of right hip pain. Denies a history of preexisting right hip joint pain. Reports a history of left hip joint and groin pain and known arthritis in the left hip. REVIEW OF SYSTEMS: MUSCULOSKELETAL: See HPI. NEUROLOGIC: Denies numbness or tingling in her extremities. PAST MEDICAL HISTORY: Significant for oxygen dependence due to a reaction to daptomycin approximately 4 years ago, rheumatoid arthritis, significant osteoporosis with multiple compression fractures. ALLERGIES: INCLUDE DAPTOMYCIN, SUMATRIPTAN, SULFA, FUROSEMIDE, AND HYDROCHLOROTHIAZIDE. MEDICATIONS: Reported home medications include bupropion, docusate sodium, diclofenac sodium, polyethylene glycol, Adderall, gabapentin, oxycodone, carvedilol, omeprazole, lisinopril and spironolactone. SOCIAL HISTORY: She lives by herself and ambulates with a walker. Denies smoking and drinks 1 alcoholic drink every other week. PAST SURGICAL HISTORY: Hysterectomy, cholecystectomy, tonsils and adenoids, eyelid surgery, and abdominoplasty. LABORATORY DATA: Done on the date of admission show white blood cell count 13.4, hemoglobin 11.6, hematocrit 35.3, platelet count 203. Chemistry is grossly normal. Creatinine is slightly elevated at 1.2. PHYSICAL EXAMINATION: GENERAL: The patient is alert and oriented. She interacts appropriately. She is a well-developed, well-nourished female in no acute distress. She appears slightly younger than her stated age. She is on oxygen in her bed. VITAL SIGNS: Most recent vital signs show temperature of 36.8, heart rate is [facility] [address] [place] [address] CONSULTATION Name: CLAU CASTILLO Room #: [facility]#: [id number] Admission: 08/30/19 Attend Phys: Milton Grullon MD Discharge: Date of : 49 Report #: [id number], respiratory rate 16, blood pressure 120/67, pulse oximetry 98% on 2 liters. EXTREMITIES: Examination of her bilateral upper extremities shows some mild diffuse arthritic changes in her digits consistent with osteoarthritis. Gross motor and sensory is intact. She has no tenderness to palpation throughout the bilateral sternum and clavicles, bilateral shoulders, arms, elbows, forearms, wrists and hands. She moves all the joints in her upper extremities without pain and within functional range. Right lower extremity exam: Sensation is intact to light touch throughout. EHL, FHL, dorsiflexion and plantar flexion are intact. She has no deformity. Skin is clean, dry and intact. No tenderness to the knee, leg, ankle or foot. No pain with range of motion of the right knee, leg, ankle or foot. There is significant pain with attempted right hip motion. Left lower extremity exam: Sensation is intact to light touch throughout. Skin is clean, dry and intact. Gross motor and sensory is intact. She wiggles her toes. There is no tenderness to palpation throughout the entire left lower extremity. There is no pain with range of motion of her left hip, knee, ankle or foot. RADIOGRAPHS: AP and lateral of the right hip show significant osteoarthritis of the femoral acetabular joint with a valgus impacted subcapital femoral neck fracture. IMPRESSION AND PLAN: Right valgus impacted femoral neck fracture with an arthritic joint that the patient reports has previously been asymptomatic. We discussed the diagnosis as well as treatment options. At this point, I recommend percutaneous screw fixation, when the schedule allows, we discussed with the OR, is extremely busy today. We will try to get it on for today, but it will be much later, it may be tomorrow morning. We discussed the risks, benefits, alternatives and complications including but not limited to blood clots, decreased ambulatory level, infection, damage to vessels or nerves, nonunion, malunion, hardware failure, hardware rotation. Questions were encouraged and answered to the best of my ability. I will discuss this with Dr. Robin Alfred who is my on-call partner and a surgery will be planned as soon as the patient is medically cleared as well and the schedule allows. Thank you very much for allowing me to participate in the care of this patient. By: 0724 0740 Bruna Chapa MD /wilfred
[2019-08-30 15:36] VITALS: BP 113/54
[2019-08-30] MEDS ORDERED: NEURONTIN100 MG PO (16:46)
[2019-08-30] MEDS ORDERED: PERCOCET 5-3251 EACH PO (16:51)
[2019-08-30 16:59] LABS: ABSOLUTE NEUTROPHILS 11.3 thou/uL (1.4-8.2); BASOPHILS 0.4 % (0.0-2.0); EOSINOPHILS 0.9 % (0.0-3.0); HEMATOCRIT 35.3 % (37.0-47.0); HEMOGLOBIN 11.6 gm/dL (12.0-15.0); LYMPHOCYTES 6.4 % (24.0-44.0); MCH 29.4 pg (26.0-34.0); MCV 88.9 fL (80.0-100.0); MONOCYTES 7.8 % (1.0-8.0); PLATELET COUNT 203 thou/uL (150-400); POLYS 84.5 % (36.0-66.0); RBC 3.97 mil/uL (4.20-5.00); RDW 13.8 % (10.5-14.5); WBC 13.4 thou/uL (4.0-11.0)
[2019-08-30 17:03] VITALS: BP 113/54
[2019-08-30 17:08] LABS: CALCIUM 10.2 mg/dL (8.5-10.1); CREATININE 1.1 mg/dL (0.6-1.0); POTASSIUM 4.2 mmol/L (3.5-5.1)
[2019-08-30 17:13] LABS: ALBUMIN 3.7 g/dL (3.4-5.0); TOTAL BILIRUBIN 0.6 mg/dL (<0.1-1.0); TOTAL PROTEIN 7.3 g/dL (6.4-8.2)
[2019-08-30 17:56] VITALS: BP 133/73
[2019-08-30 18:40] VITALS: BP 128/68
[2019-08-30 22:38] LABS: URINE BILIRUBIN NEGATIVE (Negative); URINE BLOOD NEGATIVE (Negative); URINE CLARITY CLEAR; URINE COLOR YELLOW; URINE GLUCOSE-RANDOM* NEGATIVE (Negative); URINE KETONES NEGATIVE (Negative); URINE LEUKOCYTES-REFLEX NEGATIVE (Negative); URINE NITRITE-REFLEX NEGATIVE (Negative); URINE PROTEIN (DIPSTICK) NEGATIVE (Negative); URINE UROBILINOGEN 0.2 E.U./dl (0.2-1.0)
[2019-08-31] VITALS (8 sets, daily range): BP systolic 86–120; BP diastolic 40–67
--- NOTE | 2019-08-31 03:10 | NUR ---
PT ARRIVED ON THE UNIT @1840 FROM ER. ASSUMED CARE OF PT @1900 PT ASSESSED AT START OF SHIFT A&OX4 IN COMPLAIN OF HIGH INTOLERABLE PAIN FROM HIP FX. PAIN MEDS GIVEN. PT UNABLE TO JW BED [place] ORDER PLACE FOR FOLLEY CATH INSERTION ATTEMPTX1 INTACT AND DRAINING. PT ORIENTED TO ROOM ADMISSION DONE. IV INTACT IN LFT FA AND FLUIDS INFUSING. NPO AT MIDNIGHT FOR SX TOMORROW FALL PREC IN PLACE AND CALL LIGHT WITHIN REACH WILL CONT WITH POC TILL EOS.
[2019-08-31 07:01] LABS: CALCIUM 9.4 mg/dL (8.5-10.1); CREATININE 1.2 mg/dL (0.6-1.0); POTASSIUM 4.4 mmol/L (3.5-5.1)
--- NOTE | 2019-08-31 07:57 | EKG ---
[place] [address] [facility] [place] [address] ELECTROCARDIOGRAM REPORT Name: CLAU CASITLLO Room #: 437-P ADM IN M.R.#: [id number] Admission: 08/30/19 Attend Phys: Milton Grullon MD Discharge: Date of : 49 Report #: [id number] THIS REPORT FOR: //name// [facility] ED Test Date: 2019-08-30 Test Time: 16:27:56 Pat Name: CLAU CASTILLO Department: Room: [facility] Gender: F Manager Switch: [facility] : 1945 Requested By: Uzair Schmitz Order Number: [id number] MD: Wilbert Bains Measurements Intervals Milnor Rate: 96 P: 58 FL: 141 QRS: 22 QRSD: 138 T: 18 QT: 412 QTc: 521 Interpretive Statements Sinus rhythm Right bundle branch block Compared to ECG 02/11/2019 01:02:57 Right bundle-branch block now present Ventricular premature complex(es) no longer present Prolonged QT interval no longer present Electronically Signed On 08-31-2019 7:56:51 CIRCUS HAND by Wilbert Bains [email or web address] <ELECTRONICALLY SIGNED> By: Wilbert Bains MD, [facility] 08/31/19 0756 1627 1627 Wilbert Bains MD, [facility] /EPI
[2019-08-31 11:40] LABS: HEMATOCRIT 33.4 % (37.0-47.0); HEMOGLOBIN 10.7 gm/dL (12.0-15.0); MCH 29.3 pg (26.0-34.0); MCV 91.6 fL (80.0-100.0); RBC 3.65 mil/uL (4.20-5.00); WBC 6.8 thou/uL (4.0-11.0)
--- NOTE | 2019-08-31 14:45 | NUR ---
PATIENT SEEN THIS DATE BY ALPHONSO CARY NP WITH DR. MARY. PATIENT IS A CANDIDATE FOR [facility]/ACUTE REHAB. PATIENT TO BE SEEN BY THERAPY OVER THE WEEKEND AND SHOULD BE ABLE TO ADMIT ON TUESDAY, IF ABLE TO TOLERATE/PARTICIPATE IN 3 HOURS OF THERAPY A DAY. WILL CONTINUE TO FOLLOW. THANK YOU FOR THIS REFERAL.
--- NOTE | 2019-08-31 15:10 | NUR ---
ASSESSMENT-PT LIVES IN A MOBILE HOME ALONE. PT USES A ROLLER WALKER TO GET AROUND AND USUALLY TAKES A SPONGE BATH. PT SAYS SHE PLANS TO STOP DRIVING. PT SAYS SHE CANNOT STAND FOR LONG PERIODS DUE TO BACK PAIN. 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 PT HAS A CLEANING PERSON EVERY 2 WEEKS. 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 PT HAS HAD HH SERVICES IN THE PAST BUT DOES NOT KNOW THE NAME OF THE AGENCY. PT SAYS SHE USED TO GET O2 FROM [facility] IN THE PAST AND THEY BROUGHT HER 10 TANKS THAT WERE ALREADY FILLED & WOULD PICK THEM UP WHEN THEY WERE EMPTY. SHE IS ASKING ABOUT SWITCHING BACK TO THIS TYPE OF SYSTEM. AndreN FAITH IN PROCESS. SON KASSY AT THE BEDSIDE. FOLLOWING TO ASSIST WITH DC PLANNING.
--- NOTE | 2019-08-31 19:57 | NUR ---
Pt left for surgery ay 0850 per cart accompanied by son and transporter and returned at 1310 in stable condition.Dr Grullon notified about pt low bp when returned from surgery and order noted.Pt tolerated lunch and dinner.Pt in bed resting without c/o.Report off to ruchi forbes.
--- NOTE | 2019-09-01 02:04 | NUR ---
ASSUMED PT CARE AT 1900. R HIP DRESSING DRY AND INTACT. PT STATES PAIN IS 6 WHILE MOVING AROUND IN BED BUT IS TOLERABLE. ALL BP MEDICATIONS ARE BEING HELD DUE TO LOW BP. FLUIDS CHANGED TO NS 0,9% W/KCL, HUNG AND RUNNING. NICHOLE PATENT. PT SLEEPING COMFORTABLY.
[2019-09-01 04:16] LABS: ABSOLUTE NEUTROPHILS 7.5 thou/uL (1.4-8.2); BASOPHILS 0.2 % (0.0-2.0); EOSINOPHILS 0.3 % (0.0-3.0); HEMATOCRIT 28.5 % (37.0-47.0); HEMOGLOBIN 9.4 gm/dL (12.0-15.0); MCHC 33.1 g/dL (28.0-37.0); MCV 90.6 fL (80.0-100.0); MONOCYTES 8.7 % (1.0-8.0); PLATELET COUNT 143 thou/uL (150-400); POLYS 82.8 % (36.0-66.0); RBC 3.14 mil/uL (4.20-5.00)
[2019-09-01 04:35] LABS: CALCIUM 8.7 mg/dL (8.5-10.1); POTASSIUM 4.8 mmol/L (3.5-5.1)
[2019-09-01 05:30] VITALS: BP 107/56
[2019-09-01 07:18] VITALS: BP 96/54
--- NOTE | 2019-09-01 08:54 | O ---
[facility] [place] [address] OPERATIVE REPORT Name: CLAU CASTILLO Room #: 437-P [facility] IN .R.#: [id number] Admission: 08/30/19 Attend Phys: Milton Grullon MD Discharge: Date of : 49 Report #: [id number] THIS REPORT FOR: //name// CC: Milton Smith DATE OF SERVICE: 08/31/2019 PREOPERATIVE DIAGNOSIS: Right hip femoral neck fracture. POSTOPERATIVE DIAGNOSIS: Right hip femoral neck fracture. PROCEDURE: Right hip percutaneous screw fixation. SURGEON: Dr. Robin Alfred. PILOT PLANT OPERATOR HELPER: Suyapa Gaines. ANESTHESIA: General. ESTIMATED BLOOD LOSS: Minimal. DRAINS: No drains. TOURNIQUET TIME: Zero. ESTIMATED BLOOD LOSS: 5 mL. DESCRIPTION OF PROCEDURE: The patient brought to the operating room where she was placed under general anesthesia. Once under adequate general anesthesia, she was placed onto the fracture table. The right lower extremity was then placed into traction and a reduction of the hip fracture was achieved. Once achieved, the right hip was then prepped and draped in a sterile manner. Through a 2 cm incision laterally, three guidewires for the 7.3 mm cannulated screws were placed under fluoroscopic guidance. Excellent alignment was achieved as verified under fluoroscopy. Therefore, three 16 mm threaded 7.3 mm diameter screws were placed across the fracture site from the lateral cortex. Excellent fixation and alignment was achieved as verified under fluoroscopy. The wound was irrigated copiously and closed with 2-0 Vicryl in subcutaneous tissues and bea for the skin. The wounds were dressed with Xeroform, 4 x 4s, and sterile soft compressive dressing was placed. There were no [facility] [address] [place] [address] OPERATIVE REPORT Name: CLAU CASTILLO Room #: 437-P [facility] IN [facility]#: [id number] Admission: 08/30/19 Attend Phys: Milton Grullon MD Discharge: Date of : 49 Report #: [id number] complications from the procedure. The patient tolerated the procedure well and was taken to recovery room without incident. <ELECTRONICALLY SIGNED> By: Robin Alfred MD 09/01/19 0854 1135 1215 Robin Alfred MD /nt
[2019-09-01 16:07] VITALS: BP 107/46
--- NOTE | 2019-09-01 17:15 | NUR ---
PT ASSESSED AT START OF SHIFT. RT HIP SURGICAL DSNG DRY AND INTACT. DR. HERRERA IN EARLY TO SEE PT. UP TO THE CHAIR W/ THERAPY AND WALKED SOME USING WALKER. PAIN PILL AFTER DOING THERAPY. EATING AND DRINKING WELL. NICHOLE INTACT. PT TRANSFERRED TO [facility] AT THIS TIME W/ ALL BELONGINGS.
[2019-09-01 18:49] VITALS: BP 109/48
--- NOTE | 2019-09-01 20:00 | NUR ---
PATIENT TRANSFERRED FROM [address] [place] [address], REPORT FROM BALBIR/RN. PATIENT ALERT AND ORIENTED X 4. UP WITH ASSIST X 1 WITH GAIT BELT AND WALKER. PATIENT DENIES PAIN UPON ARRIVAL TO THE UNIT AT ABOUT 1735. O2 AT 2 LITERS/NC IN PLACE. PATIENT ASSISTED UP TO THE CHAIR FPR DINNER. REPORT GIVEN TO CAMILLE/TYLOR, VS DONE AT 1900. WILL CONTINUE TO MONITOR.
--- NOTE | 2019-09-02 04:41 | NUR ---
PATIENT ALERT AND ORIENTED X4. UP IN CHAIR AT BEGINNING OF SHIFT. MEDICATED FOR PAIN X1. NICHOLE TO DD WITH YELLOW URINE. 2LNC WITH NO SOA NOTED. PATIENT STATED THAT SINCE SHE HAS BEEN IN THE HOSPITAL SHE HAS NOT RECEIVED HER ADDERALL OR HER PROTONIX. THIS NURSE CALLED THE SILO WORKER (EFRAIN) RECEIVED ORDERS FOR THESE MEDICATIONS WHICH WILL BEGIN TODAY. C/O OF HER STOMACH BEING A LITTLE UPSET DUE TO NOT RECEIVING HER PROTONIX, GIVEN SPRITE AND CRACKERS WHICH HELPED. SLEPT WELL. WILL MONITOR.
[2019-09-02 05:20] LABS: HEMATOCRIT 31.1 % (37.0-47.0); HEMOGLOBIN 10.4 gm/dL (12.0-15.0); MCH 30.4 pg (26.0-34.0); MCHC 33.4 g/dL (28.0-37.0); RBC 3.42 mil/uL (4.20-5.00); RDW 14.5 % (10.5-14.5)
[2019-09-02 08:03] VITALS: BP 122/56
[2019-09-02 12:09] VITALS: BP 122/56
[2019-09-02 19:20] VITALS: BP 104/53
--- NOTE | 2019-09-03 04:32 | NUR ---
PATIENT ALERT AND ORIENTED X4. PLEASANT AND COOPERATIVE. UP WITH WALKER AND GAIT BELT AND ONE ASSIST. THIS NURSE CHANGED DRESSING TO RIGHT HIP. 2LNC TOLERATED, HOWEVER, SOA NOTED WITH WALKING AND C/O ARMS GETTING TIRED. NICHOLE TO D/D WITH LIGHT YELLOW URINE. PATIENT TO TRANSFER TO REHAB ON 5TH FLOOR. WILL MONITOR.
--- NOTE | 2019-09-03 05:43 | NUR ---
THIS NURSE DISCONTINUED PATIENTS NICHOLE WITH 1600ML OF CLEAR YELLOW URINE AT 0530. PATIENT TOLERATED WELL.
[2019-09-03 07:49] VITALS: BP 125/566
[2019-09-03 07:53] VITALS: BP 125/56
--- NOTE | 2019-09-03 09:51 | NUR ---
SW reviewed chart. Pt was transferred to [facility] from and is progressing towards goals for discharge. [facility] is following pt for possible admission to inpt acute rehab. SW is following to assist as needed with discharge planning.
--- NOTE | 2019-09-03 14:29 | NUR ---
Received pt from Staff Coon at 1130am. Pt awake on chair. A+Ox4. On O2 at 2lpm via nasal cannula- pt using O2 at home as well. Vital signs stable. On regular diet- tolerating well, no nausea, no vomiting and no abdominal pain noted. With SL at R wrist- intact. With dressing at R hip- intact. Complained of pain, due PRN pain meds given as prescribed. Flu vaccine given today at L arm- card given to patient. Assisted in ADLs, up with walker, assistance of 1 with gait belt. Falls risk- falls bundle in place. Able to swallow meds w/o difficulty. Pt to be discharged to [facility] as per previous nurse. CM and [facility] liason informed me re: transfer. Pt seen by Dr Grullon- discharge orders made. IV discontinued. Dr Grullon informed that pt will be going to [facility] since on the discharge orders it says to home with home health, informed physician that I modified dischage orders. Report given to Staff charles.
== END 2019-09-03 14:43 | DRG 481 ==
LOC: ER 15:35 → 4S 17:08 → EROBS 17:08 → 4S 17:58 → 4N 09-01 17:35
PROVIDERS: Orthopaedic Surgery Foot and Ankle Surgery; Physician Assistant; ADMIT Hospitalist
PROC: 0QS634Z Reposition Right Upper Femur with Internal Fixation Device, Percutaneous Approach (ICD-10-PCS; principal; 2019-08-31)
DX: M80.851A Other osteoporosis with current pathological fracture, right femur, initial encounter for fracture (principal); J96.11 Chronic respiratory failure with hypoxia; E87.1 Hypo-osmolality and hyponatremia; N17.9 Acute kidney failure, unspecified; D62 Acute posthemorrhagic anemia; S72.001A Fracture of unspecified part of neck of right femur, initial encounter for closed fracture; M06.9 Rheumatoid arthritis, unspecified; I10 Essential (primary) hypertension; Z60.2 Problems related to living alone; E87.6 Hypokalemia; E83.42 Hypomagnesemia; D72.829 Elevated white blood cell count, unspecified; M16.11 Unilateral primary osteoarthritis, right hip; I95.81 Postprocedural hypotension; D69.6 Thrombocytopenia, unspecified; Z23 Encounter for immunization; Z90.710 Acquired absence of both cervix and uterus; Z88.2 Allergy status to sulfonamides; Z88.8 Allergy status to other drugs, medicaments and biological substances; Z87.891 Personal history of nicotine dependence; Z99.81 Dependence on supplemental oxygen; Z90.49 Acquired absence of other specified parts of digestive tract; Z82.49 Family history of ischemic heart disease and other diseases of the circulatory system; Z79.899 Other long term (current) drug therapy; W01.0XXA Fall on same level from slipping, tripping and stumbling without subsequent striking against object, initial encounter; Y93.89 Activity, other specified; Y92.098 Other place in other non-institutional residence as the place of occurrence of the external cause; Y99.8 Other external cause status
CPT/HCPCS: 10091; 10195; 50101; 50386; 51412; 51538; 53400; 56524; 56526; 57092; 62110; 62900; 70005

== ENCOUNTER 2019-09-03 10:14 | Inpatient (IN) | payer OTHER, MEDICARE ==
[~2019-09-03] VITALS: Ht 152.4 cm; Wt 59.0 kg
--- NOTE | ~2019-09-03 | PLAN ---
[facility] [place] [address] REHAB UNIT PLAN OF CARE Name: CLAU CASTILLO Room #: 506-1 ADM IN M.R.#: [id number] Admission: 09/03/19 Attend Phys: Jefferson Licea MD Discharge: Date of : 49 Report #: [id number] THIS REPORT FOR: //name// CC: Jefferson Smith DATE OF SERVICE: 09/05/2019 PROGRESS NOTE/OVERALL PLAN OF CARE The patient is seen back today in followup. She is in no distress. She has some complaints regarding nursing care, which was forwarded to the nurse manager english. Temperature 36.4, pulse 63, respirations 20, blood pressure 107/50. Her hip incision appears to be healing with bea in place. She does have a significant amount of ecchymosis around the hip itself. No focal calf swelling. Transfers are standby assistance with gait 30 feet contact guard assistance with a front-wheeled walker. She has ambulated up to 160 feet contact guard assistance with a front-wheeled walker. In occupational therapy, lower body dressing is standby assistance. ASSESSMENT: 1. Right femoral neck fracture, status post screw fixation on 08/31/2019, weightbearing as tolerated. 2. Postoperative hypotension, resolved. 3. Chronic hypoxic respiratory failure, has been on oxygen chronically, premorbidly and we will continue with it here on rehabilitation. 4. Rheumatoid arthritis. 5. Osteoporosis. 6. Prior mild leukocytosis resolved. PLAN: The overall plan of care is based on the preadmission screen, post-admission physician evaluation and information garnered from therapy assessments. 1. Estimated length of stay is through 09/10/2019. 2. Medical prognosis is reasonably good. 3. Anticipated interventions includes the interdisciplinary acute inpatient rehabilitation program. 4. Anticipated functional outcomes would be for the patient to become modified independent with transfers, mobility, ADLs, so she can return back home at a walker level. 5. Discharge destination back to the home setting where she lives alone in a mobile home. She does have involved sons. 6. Expected therapy by discipline includes PT, OT, 1-1/2 hours per day each [address] [address] REHAB UNIT PLAN OF CARE Name: CLAU CASTILLO Augustin Room #: 506-1 ADM IN [facility]#: [id number] Admission: 09/03/19 Attend Phys: Jefferson Licea MD Discharge: Date of : 49 Report #: [id number] five days a week throughout the duration of the acute inpatient rehabilitation stay. By: 0845 1456 Jefferson Licea MD /CATHLEEN
--- NOTE | ~2019-09-03 | H ---
[facility] [place] [address] HISTORY AND PHYSICAL Name: CLAU CASTILLO Room #: 506-1 ADM IN ..#: [id number] Admission: 09/03/19 Attend Phys: Jefferson Licea MD Discharge: Date of : 49 Report #: [id number] THIS REPORT FOR: //name// CC: Jefferson Smith DATE OF SERVICE: 09/03/2019 HISTORY AND PHYSICAL/POSTADMISSION PHYSICIAN EVALUATION HISTORY OF PRESENT ILLNESS: The patient is a 74-year-old white female who has been admitted for acute in-hospital inpatient rehabilitation. Please see the history and physical. I agree with the documentation, examination findings, assessment and plan. The patient originally was admitted on 08/30/2019 to [facility] with acute right hip pain after she tripped and fell at home. She was found to have a right femoral neck fracture and underwent percutaneous screw fixation. She is allowed weightbearing as tolerated. She has chronic hypoxic respiratory failure, on nasal prong O2. Osteoporosis, degenerative arthritis. She has been admitted for acute in-hospital inpatient rehabilitation. FAR PAST MEDICAL HISTORY, SOCIAL HISTORY, ALLERGIES, FAMILY HISTORY: Please see the history and physical. MEDICATIONS: Please see the current medication list. PAST SURGICAL HISTORY: Includes cataracts, cholecystectomy, hysterectomy and bone biopsy. REVIEW OF SYSTEMS: Has a history of chronic respiratory failure, on nasal prong O2. No new complaints of chest pain, shortness of breath or abdominal discomfort. PHYSICAL EXAMINATION: GENERAL: A 74-year-old slender white female in no obvious distress. VITAL SIGNS: Last recorded temperature 97.6, pulse 68, respirations 20, blood pressure 145/57. NEUROLOGIC: She is alert. She was seen earlier, no distress. HEENT: Facies appeared symmetric. CHEST: Sounded clear to auscultation. CARDIOVASCULAR: Regular rate and rhythm. ABDOMEN: Bowel sounds positive, nontender. GENITOURINARY AND RECTAL: Deferred. EXTREMITIES: Her hip dressing is in place. She has functional range of motion of both upper extremities. Strength is grade 4-/5. Lower extremities, no focal calf swelling. Strength of the lower extremities is probably at least a grade [facility] [address] [place] [address] HISTORY AND PHYSICAL Name: CLAU CASTILLO Room #: 506-1 [facility] IN [facility]#: [id number] Admission: 09/03/19 Attend Phys: Jefferson Licea MD Discharge: Date of : 49 Report #: [id number] 4-/5. She has been standby assistance with sit to stand. ASSESSMENT: A 74-year-old white female with the following problem list: 1. Right femoral neck fracture, status post screw fixation on 08/31/2019, weightbearing as tolerated. 2. Fall. 3. Postoperative hypotension. 4. Chronic hypoxic respiratory failure, on nasal prong O2. 5. History of osteoporosis. 6. Left hip degenerative arthritis. 7. Mild leukocytosis, which has resolved. PLAN: The patient has been admitted for acute in-hospital inpatient rehabilitation. From a postadmission physician evaluation perspective, there are no relevant changes since the preadmission screening. Please see the above review of prior and current medical and functional conditions and comorbidities. Please see the patient's previous and current functional status. As far as risk of complications, the patient has multiple medical comorbidities as noted above. Initial plan of care involves the interdisciplinary acute inpatient rehabilitation program. Measurable functional goals would be for her to become modified independent with transfers, mobility, ADLs utilizing a walker level. Prognosis is reasonably good with estimated length of stay probably at least 6-10 days. Potential barriers would include her multiple medical comorbidities and decreased functional status. The patient meets diagnostic criteria for an acute in-hospital inpatient rehabilitation stay. She meets medical necessity criteria. We will have the information security consultant physicians continue to follow. She does have the tolerance for therapies and has appropriate discharge goals back to the home setting. By: [phone] Jefferson Licea MD /[facility]
[~2019-09-03 10:14] MED LIST changes: +NEURONTIN100 MG PO; +PERCOCET 5-3251 EACH PO
[2019-09-03 15:00] VITALS: BP 126/64
--- NOTE | 2019-09-03 16:48 | NUR ---
ASSUMED CARE OF THE PT AT 1455. PT IS A&OX4 AND IS ON 2.0L OF O2. PT IS STANDBY ASSIST WITH A WALKER AND GAIT BELT. PT HAS HAD POOR APPETITE WITHIN THE LAST WEEK AND HAS LOST 5 PDS SINCE ADMISSION INTO THE HOSPITAL, BUT DENIES DEPRESSION. PT HAS NO IV ACCESS AND PAIN IS BEING CONTROLLED BY PAIN MEDICATION. LAST BM WAS TODAY. FALL PRECAUTIONS ARE IN PLACE AND FALL CONTRACT SIGNED, ALONG WITH ADMISSION PAPERWORK. CALL LIGHT WITHIN REACH. BED/CHAIR IN LOWEST POSITION WITH ALARMS IN PLACE. WILL CONTINUE TO MONITOR THE PT.
[2019-09-03 20:18] VITALS: BP 134/67
--- NOTE | 2019-09-04 02:11 | NUR ---
PT ALERT AND ORIENTED X 4. AMB TO BR WITH WALKER AND ASSIST X 1. RIGHT HIP DRESSING C/D/I. 02 ON AT 2L PER NC CONT. PT C/O GENERALIZED PAIN. OXYCODONE GIVEN X 1 AND PT SLEEPING UPON REASSESSMENT. BED ALARM ON FOR SAFETY. PT APPEARS TO BE SLEEPING ON HOURLY ROUNDS.
[2019-09-04 05:31] LABS: HEMATOCRIT 32.3 % (37.0-47.0); HEMOGLOBIN 10.5 gm/dL (12.0-15.0); MCH 29.7 pg (26.0-34.0); MCHC 32.6 g/dL (28.0-37.0); RBC 3.55 mil/uL (4.20-5.00); RDW 14.3 % (10.5-14.5); WBC 6.7 thou/uL (4.0-11.0)
[2019-09-04 05:34] LABS: CALCIUM 9.6 mg/dL (8.5-10.1); CREATININE 0.9 mg/dL (0.6-1.0); POTASSIUM 4.4 mmol/L (3.5-5.1)
[2019-09-04 08:00] VITALS: BP 145/57
[2019-09-04 09:29] VITALS: BP 145/57
--- NOTE | 2019-09-04 09:44 | NUR ---
chart review, cm visited with pt up in chair, o2 per nc. intro to cm, team meeting and dcp. pt reported " live home alone, [place]. has home o2 already. ramp. cooks, manage own medication. sons in area. hh in past but unable to recall who she used in the past. will cont following as needed for dc needs.
--- NOTE | 2019-09-04 11:15 | NUR ---
ASSUME PT CARE AT 0700. REPORTS SLEPT GOOD LAST NIGHT AFTER TOOK PAIN MED. PT HERE FOR R FEMORAL NECK FX S/P SCREW FIXATION ON 08/31. C/O PAIN ON RIGHT HIP RATED PAIN 6/10, PRN PAIN MED GIVEN WITH MORNING MEDS. VSS AND LAB RESULTS REVIEWED. RIGHT HIP CAROL DRESSING CHANGED AND PUT OPTIFOAM. NO SIGN OF EDEMA OR REDNESS, NO DRAINAGE. PT ALERT AND ORIENTED X 4. AMB TO BR WITH WALKER AND ASSIST X 1. RIGHT HIP DRESSING C/D/I NOW. 02 ON AT 2L PER NC CONT. HAS HX OF CHRONIC HYPOXIC RESPIRATORY FAILURE. UP TO DINNING ROOM FOR BREAKFAST. OT ASSIST WITH BATH AT THIS MOMENT. OFFERED SUPPORTIVE CARE. REASSESSMENT PER CHART. LAST BM WAS YESTERDAY. CONTINUE TO BE ON MIRALAX DAILY D/T TAKING NARCOTIC DAILY TO MANAGE PAIN. PT HAS BRIGHT AFFECT AND HER GOALS TO PARTICIPATE WITH THERAPY TOWARD DISCHARGE GOALS. CONTINUE TO OFFER SUPPORT AND ENCOURAGEMENT.FALL PRECAUTION IN PLACE. WILL CONTINUE TO MONITOR.
--- NOTE | 2019-09-04 12:57 | NUR ---
team meeting, recommendation: pt stated to therapy goal is to be better to be home before danita. dc 25 home, hh ( pt, ot, nursing). no dme needs.
--- NOTE | 2019-09-04 16:00 | NUR ---
DISCHARGE PLANNING. ANTICIPATED DISCHARGE PLANNED FOR 09/10 PER UNIT CM. HOME HEALTH RECOMMENDED AT DISCHARGE. PATIENT REFERRAL FAXED TO [facility] PER REQUEST. CALL PLACED TO NEELIMA NAEJRA LIAISON TO NOTIFY OF PATIENTS HH NEEDS AND DISCHARGE DATE. AWAITING RESPONSE. FOLLOWING.
[2019-09-04 17:01] VITALS: BP 123/65
[2019-09-04 19:45] VITALS: BP 103/61
--- NOTE | 2019-09-05 04:07 | NUR ---
assumed care at approx 1900 evening 09/04. pt alert and oriented x4, appropriate and cooperative. pt sitting up in bed at change of shift resting stating she was tired and had lots of company earlier. pt given pain pill at hs stating she basically had pain all over. pt stated she has spine and joint problems in addition to hip pain. pt given pain meds as ordered and appears to be sleeping off and on. pt c/o mild nausea, denied need for med and given pudding and yogurt. pt sleeping at present. bed alarm on and call light in reach. will continue to monitor.
[2019-09-05 08:37] VITALS: BP 107/50
--- NOTE | 2019-09-05 13:02 | NUR ---
ASSUMED CARE AT 0700. PATIENT IS ALERT AND ORIENTED X4. PATIENT MARY'S, PSYCHIC READER ARE EQUAL. LUNGS ARE CLEAR. ABD IS SOFT WITH BSX4. PATINET HAS RIGHT HIP DRESSING. PATIENT IS UP WITH ASSIST OF 1 STAFF AND GAIT BELT AND WALKER. OUT TO THE DINING ROOM FOR MEALS. FALL AND SAFETY PROTOCOLS IN PLACE. C/O NAUSEA. LEMON-YOMBA SHOSHONE SODA AND CRACKERS GIVEN. WILL DISCUSS WITH EXECUTIVE CYBER LEADER ON ROUNDS PAIN MEDS , BREAK THROUGH PAIN AND NAUSEA. FALL AND SAFETY PROTOCOLS IN PLACE. C/O PAIN IN RIGHT HIP. MEDICATED WITH PRN PAIN MED BY NIGHT NURSE. CONTINUES TO PROGRESS TOWARDS D/C GOALS. WILL CONTINUE TO MONITER.
[2019-09-05 20:04] VITALS: BP 130/60
--- NOTE | 2019-09-06 01:21 | NUR ---
PT ALERT AND ORIENTED X 4. AMB TO BR WITH WALKER AND ASSIST X 1. RIGHT HIP DRESSING C/D/I. 02 ON AT 2L PER NC CONT. PT C/O GENERALIZED PAIN. PERCOCET GIVEN X 1. VOLTAREN GEL TO NECK AND KNEES. NO C/O NAUSEA, NO EMESIS. BED ALARM ON FOR SAFETY. PT CHECKED ON HOURLY ROUNDS.
--- NOTE | 2019-09-06 07:29 | NUR ---
ASSUMED CARE AT 0700. PATIENT IS ALERT AND ORIENTED X4. PATIENT MARY'S, TRANSPORT OPERATIONS INSPECTOR ARE EQUAL. LUNGS ARE CLEAR AND DEMINISHED. PATIENT CONTINUES ON 02 AT 2L PER N/C. ABD IS SOFT WITH BSX4. NO L.E. EDEMA NOTED. PATIENT IS UP WITH ASSIST OF 1 STAFF AND GAIT BELT AND WALKER TO THE BATHROOM TO VOID PACO COLORED URINE. UP IN HER RECLINER FOR MEALS. FALL AND SAFFTY PROTOCOLS IN PLACE. C/O PAIN IN HER NECK, KNEES, AND HIP. PT WAS MEDICATED WITH PRN PAIN BY NIGHT NURSE. PATIENT CONTINUES TO PROGRESS TOWARDS D/C GOALS. WILL CONTINUE TO MONITER.
[2019-09-06 08:14] VITALS: BP 99/46
[2019-09-06 19:00] VITALS: BP 119/57
--- NOTE | 2019-09-07 01:37 | NUR ---
PT ALERT AND ORIENTED X 4. AMB TO BR WITH WALKER AND ASSIST X 1. DRESSING TO RIGHT HIP C/D/I. PT C/O PAIN IN RIGHT HIP AND LEG. PERCOCET GIVEN AT HS. VOLTAREN GEL TO NECK AND SHOULDERS AT HS. 02 ON AT 2L PER NC CONT. 02 SAT 98% ON 2L. NO C/O NAUSEA. BED ALARM ON FOR SAFETY. PT CHECKED ON HOURLY ROUNDS.
[2019-09-07 11:29] VITALS: BP 116/54
--- NOTE | 2019-09-07 11:41 | NUR ---
team meeting, recommendation: cm notified by pt that britni 4ww is broken, she is having more pain and been tearful. " if needs to go home safe she wants to stay past the , specialized hh ( pt, ot, nursing, sw ) and will need dme. move dc to 09/14/19. bedside nurse to discuss with md about pain.
--- NOTE | 2019-09-07 13:37 | NUR ---
Received awake on bed. Due medications given as prescribed, able to swallow meds w/o difficulty. A+Ox4. With O2 at 2lpm via nasal cannula- pt's baseline at home. With dressing at R hip- changed today, charted; C/D/I- no signs of infection noted, bea intact. Assisted in ADLs. Falls bundle in place. Vital signs stable. Falls bundle in place, up with 1 using walker. Pt very tearful this AM said she did not have her 6am pain meds- given as prescribed, informed pt that pain meds are as needed, and just to inform nurse if she wants to have it, will let next shift nurse know as well and to offer pain meds to her. Pt seen by Dr Pond this AM, flexiril started- given as prescribed, to continue PT/OT. To review pt's pain meds based on team conference this PM- Dr Pond informed. Tolerating regular diet- no nausea, no vomiting and no abdominal pain noted.
[2019-09-07 19:14] VITALS: BP 111/56
--- NOTE | 2019-09-08 02:41 | NUR ---
assumed care at approx 1900 evening 09/07. pt sitting up in bed at change of shift sleeping. pt awoke for hs meds and stated muscle relaxant made her very drowsy and almost drunk feeling. pt took hs meds with no problems. pt assisted with gown change at hs. 02 at 2l per n/c. pt slept soundly until approx 0200 and po Tylenol given as requested. bed alarm on and call light in reach. will continue to monitor.
--- NOTE | 2019-09-08 07:35 | NUR ---
ASSUMED CARE AT 0700. PATIENT IS ALERT AND ORIENTED X4. PATIENT MARY'S, DIRECTOR BUSINESS TRAVEL ARE EQUAL. LUNGS ARE CLEAR AND DEMINISHED. ABD IS SOFT WITH BSX4. UP TO THE BATHROOM WITH ASSIST OF 1 STAFF AND GAIT BELT AND WALKER. UP IN RECLINER FOR MEALS. FALL AND SAFETY PROTOCOLS IN PLACE. C/O PAIN IN HER RIGHT HIP. MEDICATED WITH PRN PAIN MED BY NIGHT NURSE. CONTINUES TO PROGRESS TOWARDS D/C GOALS. WILL CONTINUE TO MONITER.
[2019-09-08 07:54] VITALS: BP 123/56
[2019-09-08 19:30] VITALS: BP 122/57
--- NOTE | 2019-09-08 22:26 | NUR ---
PT ASSESSMENT DONE AND VSS. MEDS GIVEN AND WELL TOLERATED. FALL PRECAUTIONS IN PLACE. SLEEPING WELL. HOURLY ROUNDING. CALL LIGHT IN REACH. WILL CONTINUE TO MONITOR.
[2019-09-09 07:25] VITALS: BP 134/57
--- NOTE | 2019-09-09 18:17 | NUR ---
Assumed pt care this am, VS have been stable. Pt verbalized that she wants her pain meds re-adjusted and gabapentine taken off since this makes her very drowsy, hospitalist informed adjustments made. Wound dressing changed, pain managed with medication through out the shift. Hydration encouraged, maintained on 2 liters of O2 via NC. POC followed, no signs or verbalizations of distress have been noted. Stayed in her room for most of the day and had her meals there. Endorsed to the night nurse.
[2019-09-09 19:25] VITALS: BP 103/58
--- NOTE | 2019-09-10 01:03 | NUR ---
PT ALERT AND ORIENTED X 4. AMB TO BR WITH WALKER AND ASSIST X 1. RIGHT HIP DRESSING C/D/I. PT C/O PAIN IN HER BACK. PERCOCET GIVEN AT HS. 02 ON AT 2L PER NC CONT. BED ALARM ON FOR SAFETY. PT APPEARS TO BE SLEEPING ON HOURLY ROUNDS.
[2019-09-10 09:00] VITALS: BP 122/71
--- NOTE | 2019-09-10 16:42 | NUR ---
Assumed pt care this am, VS stable. Pt tends to be very [place] and needy, forgetful at times. Pt got upset in the afternoon when assisted to the toilet since, nurse was outside waiting for pat the call instead she used the call light and forgot what she was told. Pt was able to work with PT and OT, pain managed with medication through out the shift. POC followed.
[2019-09-10 19:12] VITALS: BP 138/69
--- NOTE | 2019-09-11 01:24 | NUR ---
PT ALERT AND ORIENTED X 4. AMB TO BR WITH WALKER AND ASSIST X 1. RIGHT HIP DRESSING C/D/I. PT C/O PAIN IN RIGHT HIP. PERCOCET GIVEN AT HS. ZOFRAN GIVEN AT 2355 FOR C/O NAUSEA. BED ALARM ON FOR SAFETY. PT APPEARS TO BE SLEEPING ON HOURLY ROUNDS.
[2019-09-11 07:00] VITALS: BP 127/66
--- NOTE | 2019-09-11 13:40 | NUR ---
Assumed pt care at 7am.Pt in and out of bed for therapy.Assessment completed. vss.Pt c/o rt hip and neck pain rated 7/10.Pain med and cream given with relief.Pt ambulated in hallways with therapist.Good endurance noted.Pt in thrapy at present.Will continue to monitor.
[2019-09-11 19:31] VITALS: BP 151/89
--- NOTE | 2019-09-12 03:03 | NUR ---
ASSUMED CARE AT APPROX 1900 EVENING 09/11. PT SITTING UP IN RECLINER AT CHANGE OF SHIFT VISITING WITH FAMILY IN APT. PT ALERT AND ORIENTED X4, APPROPRIATE AND COOPERATIVE. PT TOOK HS MEDS WITH WATER AND FELL ASLEEP FAST. PT AWOKE APPROX 0200 C/O NAUSEA. ZOFRAN GIVEN ORDERED. 02 AT 2L PER N/C. BED ALARM ON AND CALL LIGHT IN REACH. WILL CONTINUE TO MONITOR.
[2019-09-12 07:19] VITALS: BP 147/69
[2019-09-12 19:05] VITALS: BP 142/66
--- NOTE | 2019-09-13 01:46 | NUR ---
PT ASSESSMENT DONE AND VSS. MEDS GIVEN AND WELL TOLERATED. FALL PRECAUTIONS IN PLACE. SLEEPING WELL. HOURLY ROUNDING. CALL LIGHT IN REACH. WILL CONTINUE TO MONITOR.
[2019-09-13 05:17] LABS: ABSOLUTE NEUTROPHILS 4.2 thou/uL (1.4-8.2); BASOPHILS 1.1 % (0.0-2.0); EOSINOPHILS 8.7 % (0.0-3.0); HEMATOCRIT 33.7 % (37.0-47.0); HEMOGLOBIN 10.9 gm/dL (12.0-15.0); LYMPHOCYTES 18.5 % (24.0-44.0); MCH 29.5 pg (26.0-34.0); MCHC 32.2 g/dL (28.0-37.0); MCV 91.6 fL (80.0-100.0); MONOCYTES 9.7 % (1.0-8.0); PLATELET COUNT 318 thou/uL (150-400); RBC 3.68 mil/uL (4.20-5.00); RDW 14.2 % (10.5-14.5); WBC 6.8 thou/uL (4.0-11.0)
[2019-09-13 05:39] LABS: CALCIUM 10.6 mg/dL (8.5-10.1); CREATININE 1.3 mg/dL (0.6-1.0)
[2019-09-13 09:30] VITALS: BP 118/52
--- NOTE | 2019-09-13 14:34 | NUR ---
dominick notified by outside sales consultant that pt wants to dc home today with hh unsteady of tomorrow rt her appointment for tomorrow was canceled tomorrow so she can go home today. physical therapy came and ask if i could fill her portable o2 tank to go home. education that i will discuss with pt and have her [email or web address] company bring one before her son picks her up this evening. cm visit with pt at bedside education on calling [employer] to bring her filled one " no that is ok, i have concentrator at home to refill but it is getting hard for by back and getting open with hands is difficult, i want a different company there not helpful"/britni. will cont following as needed for dc needs.
[2019-09-13] MEDS ORDERED: CARVEDILOL3.125 MG PO (14:39)
[2019-09-13] MEDS ORDERED: CYCLOBENZAPRINE5 MG PO (14:39)
[2019-09-13] MEDS ORDERED: ASPIRIN325 PO (14:40)
[2019-09-13] MEDS ORDERED: TRAMADOL 50 MG50 MG PO (14:41)
[2019-09-13 14:47] VITALS: BP 118/52
--- NOTE | 2019-09-13 16:31 | NUR ---
ASSUMED CARE AT 0700, PATIENT A&O X 4, NO ACUTE DISTRESS NOTED. CONDITION STABLE, VS STABLE, O2 2L VIA NC. PT C/O PAIN AND NAUSEA RELIEVED WITH PRN PERCOCET X 1 AND PRN ZOFRAN X 1. PT HAS NO IV ACCESS, AND MOD-I IN ROOM. PT DISCHARGED AT 1615 TO HOME WITH FAMILY. 7 CAROL TO R HIP REMOVED AND STERI STRIPS PLACED. DISCHARGE INSTRUCTION DISCUSSED WITH PATIENT AND NEEDS OR CONCERNS WERE ADDRESSED. DISCHARGE DOCUMENTATION SIGNED. TRANSPORTED TO MEDICAL MALL ENTRANCE AT 1615 LEFT WITH FAMILY.
== END 2019-09-13 16:25 | disposition home or self-care (01) | DRG 536 ==
PROVIDERS: Nurse Practitioner Family; ADMIT Physical Medicine & Rehabilitation
DX: S72.001A Fracture of unspecified part of neck of right femur, initial encounter for closed fracture (principal); J96.11 Chronic respiratory failure with hypoxia; D62 Acute posthemorrhagic anemia; E44.0 Moderate protein-calorie malnutrition; M81.0 Age-related osteoporosis without current pathological fracture; M19.90 Unspecified osteoarthritis, unspecified site; M16.12 Unilateral primary osteoarthritis, left hip; D72.829 Elevated white blood cell count, unspecified; Z60.2 Problems related to living alone; R26.9 Unspecified abnormalities of gait and mobility; I10 Essential (primary) hypertension; M06.9 Rheumatoid arthritis, unspecified; Z68.25 Body mass index [BMI] 25.0-25.9, adult; Z90.49 Acquired absence of other specified parts of digestive tract; Z90.710 Acquired absence of both cervix and uterus; Z98.42 Cataract extraction status, left eye; Z98.41 Cataract extraction status, right eye; Z88.2 Allergy status to sulfonamides; Z88.8 Allergy status to other drugs, medicaments and biological substances; W18.39XA Other fall on same level, initial encounter; Y93.89 Activity, other specified; Y92.098 Other place in other non-institutional residence as the place of occurrence of the external cause; Y99.8 Other external cause status
CPT/HCPCS: 10112

== ENCOUNTER → 2019-11-15 | Outpatient (CLI) | payer OTHER, MEDICARE ==
[~2019-11-15] MED LIST changes: +ASPIRIN325 PO; +CARVEDILOL3.125 MG PO; +CYCLOBENZAPRINE5 MG PO; +TRAMADOL 50 MG50 MG PO
== END ==
LOC: RAD 12:11
DX: M17.0 Bilateral primary osteoarthritis of knee (principal); M19.012 Primary osteoarthritis, left shoulder

== ENCOUNTER → 2020-02-01 | Outpatient (CLI) | payer OTHER, MEDICARE ==
[~2020-02-01] MED LIST changes: +DULOXETINE HCL30 MG PO; +ZESTRIL10 MG PO
== END ==
LOC: SJCVC 14:14
PROVIDERS: ATTEND Internal Medicine
DX: I45.10 Unspecified right bundle-branch block (principal); R94.31 Abnormal electrocardiogram [ECG] [EKG]; I10 Essential (primary) hypertension; I42.0 Dilated cardiomyopathy; R93.1 Abnormal findings on diagnostic imaging of heart and coronary circulation; E78.5 Hyperlipidemia, unspecified; D86.0 Sarcoidosis of lung; J67.9 Hypersensitivity pneumonitis due to unspecified organic dust; G47.33 Obstructive sleep apnea (adult) (pediatric); M81.0 Age-related osteoporosis without current pathological fracture; Z79.899 Other long term (current) drug therapy; Z82.49 Family history of ischemic heart disease and other diseases of the circulatory system; Z87.891 Personal history of nicotine dependence

== ENCOUNTER → 2020-02-01 | Outpatient (CLI) | payer OTHER, MEDICARE ==
[~2020-02-01] MED LIST changes: -DULOXETINE HCL30 MG PO; -ZESTRIL10 MG PO
== END ==
LOC: RAD 15:58
DX: M80.00XA Age-related osteoporosis with current pathological fracture, unspecified site, initial encounter for fracture (principal); M51.37 Other intervertebral disc degeneration, lumbosacral region; M41.85 Other forms of scoliosis, thoracolumbar region; M16.12 Unilateral primary osteoarthritis, left hip; M47.816 Spondylosis without myelopathy or radiculopathy, lumbar region; M85.88 Other specified disorders of bone density and structure, other site; I70.0 Atherosclerosis of aorta

== ENCOUNTER → 2020-02-25 | Outpatient (CLI) | payer OTHER, MEDICARE ==
[~2020-02-25] VITALS: Ht 157.5 cm; Wt 55.2 kg
[~2020-02-25] MED LIST changes: +DULOXETINE HCL30 MG PO; +ZESTRIL10 MG PO
[2020-02-25 14:17] VITALS: BP 107/64
--- NOTE | 2020-02-25 14:47 | NUR ---
Pain Clinic Assessment: 1. History of Osteoarthritis: SPINE History of Rheumatoid Arthritis: unsure 2. Height: 5 ft. 2 in. 157.5 cm. Weight: 121.6 lb. oz. 55.157 kg. Patient's BMI: 22.2 3. Vital Signs: BP: 107/64 Pulse: 62 Resp: 20 Temp: 02 Sat: 98 ECG Mon: 4. Pain Intensity: 10 5. Fall Risk: Dizziness: Y Needs help standing or walking: Y Fallen in the last 3 months: N Fall risk comments: 6. Patient on Blood Thinner: None 7. History of Hypertension: Y 8. Opioid Therapy greater than 6 weeks: Y Opiate Contract Signed: 9. Risk Assessment Tool Provided: LOW-3 10. Functional Assessment Tool: 70/70 11. Recreational Drug Use: Never Drug Type: Tobacco Use: Never Smoker Tobacco Type: Amount or Packs/day: How Many Years: Alcohol Use: Yes Frequency: Quant:
--- NOTE | 2020-03-06 12:16 | HPC ---
[facility] [place] [address] PAIN MANAGEMENT CONSULTATION Name: CLAU CASTILLO Room #: REG [facility].#: [id number] Admission: 02/25/20 Attend Phys: Carlos Pickens MD Discharge: Date of : 49 Report #: [id number] THIS REPORT FOR: cc: Alexandra Smith MD, Nora P. MD Morgan, Richard L. MD ~ CC: RAÚL Pickens DATE OF SERVICE: 02/25/2020 CHIEF COMPLAINT: Chronic intractable pain, multiple pain generators. The patient is here today at the request of Dr. Voss for occipital nerve blocks. The patient is here today in the pain clinic for assessment of chronic pain. She had forgotten why she was referred here. I have records from Dr. Voss suggesting that she tried occipital nerve blocks for the cervical pain that she has and spondylitic aching radiates up into the back of her head. In addition to this pain, she complains of a number of other aches and pains as well. She has pain in her midback, low back and it is chronic in nature. She has some radiating pain as well into her shoulders. She suffers from congestive heart failure and is on oxygen. She seems weak and short of breath even at rest in our office today. The patient has been treated in the past for compression fractures. She reports that at one time, she is 5 feet 4 inches. She is now 5 feet tall. She has had kyphoplasty and number of other injections at another pain clinic in town. All medications were reviewed and reconciled. We do not write for pain medicine for her. She is on lisinopril, Cymbalta, carvedilol, spironolactone, omeprazole, diclofenac gel, Colace, Adderall. PHYSICAL EXAMINATION: She is frail, but pleasant and she is 75-year-old. She is 5 feet tall, 119 pounds with a BMI of 23.2. Blood pressure 115/69, heart rate 87, respirations 14, and O2 sat 100. She scores her pain intensity 10/10 in her occiput today. She has trouble standing, walking and would be considered a fall risk, but has not fallen in the last 3 months. We talked about importance of careful movements and stabilizing herself when she goes from place to place. She came in a wheelchair. She is on opioid therapy, but has completed an opioid risk tools and considered at low risk for addiction scoring 3/10. She denies use of tobacco and alcohol. VITAL SIGNS: As noted above. Examination of the neck reveals tenderness high in the neck just below the [facility] [address] [place] [address] PAIN MANAGEMENT CONSULTATION Name: CLAU CASTILLO Room #: REG [facility] [place]#: [id number] Admission: 02/25/20 Attend Phys: Carlos Pickens MD Discharge: Date of : 49 Report #: [id number] suboccipital ridge. There is tenderness there. Pain is radiating up the neck and into the back of the head. She has pain with rotational movements, flexion and extension. She has generalized weakness of the upper and lower extremities. Tenderness across the lumbosacral segment. IMPRESSION: 1. Chronic spinal pain with cervicalgia and spondylosis. 2. Occipital neuralgia. 3. Congestive heart failure, cardiomyopathy. 4. History of hypertension. 5. Chronic kidney disease. 6. History of depression. RECOMMENDATIONS: Occipital nerve blocks, bilateral. PROCEDURE: After informed consent, she was placed in sitting position, skin prepped with ChloraPrep. A 25-gauge 1-1-1/2 inch needle was used to perform the injections, first on the right. Two fingerbreadths lateral to the midline and 2 fingerbreadths below the occipital ridge and gently injected in a fan shaped total of 4 mL of 0.25% bupivacaine mixed with 20 mg of triamcinolone. Needle was removed. I repeated the injection on the left. She had numbness in the distribution of the occipital nerve. Following the injection, she was observed for a short time. Pain was reduced by about 30%. Followup visit planned as needed. No medications were ordered. <ELECTRONICALLY SIGNED> By: Carlos Pickens MD 03/06/20 1216 [id number] Carlos Pickens MD /nt
== END | disposition home or self-care (01) ==
LOC: PAIN 07:09
PROVIDERS: ATTEND Anesthesiology Pain Medicine
DX: M54.81 Occipital neuralgia (principal); G89.29 Other chronic pain; M54.2 Cervicalgia; M47.892 Other spondylosis, cervical region; I13.0 Hypertensive heart and chronic kidney disease with heart failure and stage 1 through stage 4 chronic kidney disease, or unspecified chronic kidney disease; I50.9 Heart failure, unspecified; N18.9 Chronic kidney disease, unspecified; Z98.890 Other specified postprocedural states; Z79.899 Other long term (current) drug therapy; Z88.2 Allergy status to sulfonamides; Z88.8 Allergy status to other drugs, medicaments and biological substances

== ENCOUNTER → 2020-06-13 | Outpatient (CLI) | payer OTHER, MEDICARE | LOC: RAD 12:44 | PROVIDERS: ATTEND Family Medicine | DX: M41.85 Other forms of scoliosis, thoracolumbar region (principal); M85.88 Other specified disorders of bone density and structure, other site; M85.48 Solitary bone cyst, other site; M54.42 Lumbago with sciatica, left side ==

== ENCOUNTER → 2020-07-31 | Outpatient (CLI) | payer OTHER, MEDICARE | LOC: RAD 11:22 | PROVIDERS: ATTEND Internal Medicine Pulmonary Disease | DX: J47.9 Bronchiectasis, uncomplicated (principal); J84.9 Interstitial pulmonary disease, unspecified; M25.78 Osteophyte, vertebrae; M41.85 Other forms of scoliosis, thoracolumbar region ==

== ENCOUNTER → 2021-02-26 | Outpatient (CLI) | payer OTHER ==
[~2021-02-26] VITALS: Ht 157.5 cm; Wt 54.4 kg
[~2021-02-26] MED LIST changes: +ENDOCET 10-3251 EACH PO; +LEXAPRO 10 MG T10 M2 PO
[2021-02-26 13:06] VITALS: BP 98/54
--- NOTE | 2021-02-26 13:15 | NUR ---
Pain Clinic Assessment: 1. History of Osteoarthritis: SPINE History of Rheumatoid Arthritis: unsure 2. Height: 5 ft. 2 in. 157.5 cm. Weight: 120.0 lb. oz. 54.432 kg. Patient's BMI: 21.9 3. Vital Signs: BP: 98/54 Pulse: 65 Resp: 16 Temp: 02 Sat: 97 ECG Mon: 4. Pain Intensity: 10 5. Fall Risk: Dizziness: N Needs help standing or walking: N Fallen in the last 3 months: N Fall risk comments: 6. Patient on Blood Thinner: None 7. History of Hypertension: Y 8. Opioid Therapy greater than 6 weeks: Y Opiate Contract Signed: 9. Risk Assessment Tool Provided: LOW-3 10. Functional Assessment Tool: 70/70 11. Recreational Drug Use: Never Drug Type: Tobacco Use: Never Smoker Tobacco Type: Amount or Packs/day: How Many Years: Alcohol Use: No Frequency: Quant:
== END ==
LOC: PAIN 10:21
PROVIDERS: ATTEND Anesthesiology Pain Medicine
DX: M48.56XG Collapsed vertebra, not elsewhere classified, lumbar region, subsequent encounter for fracture with delayed healing (principal); M16.12 Unilateral primary osteoarthritis, left hip; M54.81 Occipital neuralgia; I13.0 Hypertensive heart and chronic kidney disease with heart failure and stage 1 through stage 4 chronic kidney disease, or unspecified chronic kidney disease; I50.9 Heart failure, unspecified; N18.9 Chronic kidney disease, unspecified; F41.9 Anxiety disorder, unspecified; F32.9 Major depressive disorder, single episode, unspecified; Z79.899 Other long term (current) drug therapy; Z79.891 Long term (current) use of opiate analgesic; Z88.2 Allergy status to sulfonamides; Z88.1 Allergy status to other antibiotic agents; Z88.8 Allergy status to other drugs, medicaments and biological substances

== ENCOUNTER → 2021-03-05 | Outpatient (CLI) | payer OTHER ==
[~2021-03-05] VITALS: Ht 157.5 cm; Wt 55.4 kg
[2021-03-05 12:51] VITALS: BP 110/63
--- NOTE | 2021-03-05 12:56 | NUR ---
Pain Clinic Assessment: 1. History of Osteoarthritis: SPINE History of Rheumatoid Arthritis: unsure 2. Height: 5 ft. 2 in. 157.5 cm. Weight: 122.2 lb. oz. 55.429 kg. Patient's BMI: 22.3 3. Vital Signs: BP: 110/63 Pulse: 64 Resp: 14 Temp: 02 Sat: 99 ECG Mon: 4. Pain Intensity: 8 5. Fall Risk: Dizziness: N Needs help standing or walking: N Fallen in the last 3 months: N Fall risk comments: 6. Patient on Blood Thinner: None 7. History of Hypertension: Y 8. Opioid Therapy greater than 6 weeks: Y Opiate Contract Signed: 9. Risk Assessment Tool Provided: LOW-3 10. Functional Assessment Tool: 70/70 11. Recreational Drug Use: Never Drug Type: Tobacco Use: Never Smoker Tobacco Type: Amount or Packs/day: How Many Years: Alcohol Use: No Frequency: Quant:
== END | disposition home or self-care (01) ==
LOC: PAIN 10:10
PROVIDERS: ATTEND Anesthesiology Pain Medicine
DX: M16.12 Unilateral primary osteoarthritis, left hip (principal); G89.29 Other chronic pain; I13.0 Hypertensive heart and chronic kidney disease with heart failure and stage 1 through stage 4 chronic kidney disease, or unspecified chronic kidney disease; N18.9 Chronic kidney disease, unspecified; I50.9 Heart failure, unspecified; I42.9 Cardiomyopathy, unspecified; F32.9 Major depressive disorder, single episode, unspecified; Z98.890 Other specified postprocedural states; Z79.899 Other long term (current) drug therapy; Z88.2 Allergy status to sulfonamides; Z88.8 Allergy status to other drugs, medicaments and biological substances

== ENCOUNTER → 2021-03-19 | Outpatient (CLI) | payer OTHER | LOC: SJCVC 13:22 | PROVIDERS: ATTEND Internal Medicine | DX: R94.31 Abnormal electrocardiogram [ECG] [EKG] (principal); I45.10 Unspecified right bundle-branch block; R00.1 Bradycardia, unspecified; I08.3 Combined rheumatic disorders of mitral, aortic and tricuspid valves; I42.0 Dilated cardiomyopathy; R93.1 Abnormal findings on diagnostic imaging of heart and coronary circulation; I10 Essential (primary) hypertension; E78.5 Hyperlipidemia, unspecified; D86.0 Sarcoidosis of lung; J67.9 Hypersensitivity pneumonitis due to unspecified organic dust; G47.33 Obstructive sleep apnea (adult) (pediatric); Z01.810 Encounter for preprocedural cardiovascular examination; R07.9 Chest pain, unspecified; M54.5 Low back pain; G89.29 Other chronic pain; M81.0 Age-related osteoporosis without current pathological fracture; F41.9 Anxiety disorder, unspecified; Z79.899 Other long term (current) drug therapy; Z87.891 Personal history of nicotine dependence; Z72.89 Other problems related to lifestyle; Z88.1 Allergy status to other antibiotic agents; Z88.2 Allergy status to sulfonamides ==

== ENCOUNTER → 2021-04-01 | Outpatient (CLI) | payer OTHER | LOC: SJCVCIMAG 09:06 | PROVIDERS: ATTEND Internal Medicine | DX: I08.3 Combined rheumatic disorders of mitral, aortic and tricuspid valves (principal); Z01.810 Encounter for preprocedural cardiovascular examination; I42.9 Cardiomyopathy, unspecified; D86.9 Sarcoidosis, unspecified ==

== ENCOUNTER → 2021-05-07 | Outpatient (CLI) | payer OTHER ==
[~2021-05-07] VITALS: Ht 152.4 cm; Wt 54.4 kg
[2021-05-07 12:41] VITALS: BP 95/49
--- NOTE | 2021-05-07 12:43 | NUR ---
Pain Clinic Assessment: 1. History of Osteoarthritis: SPINE History of Rheumatoid Arthritis: HANDS WRIST 2. Height: 5 ft. 0 in. 152.4 cm. Weight: 120.0 lb. oz. 54.432 kg. Patient's BMI: 23.4 3. Vital Signs: BP: 95/49 Pulse: 66 Resp: 18 Temp: 02 Sat: 95 ECG Mon: 4. Pain Intensity: 5 5. Fall Risk: Dizziness: N Needs help standing or walking: N Fallen in the last 3 months: Y Fall risk comments: 6. Patient on Blood Thinner: None 7. History of Hypertension: Y 8. Opioid Therapy greater than 6 weeks: Y Opiate Contract Signed: 9. Risk Assessment Tool Provided: LOW-3 10. Functional Assessment Tool: 70/70 11. Recreational Drug Use: Never Drug Type: Tobacco Use: Never Smoker Tobacco Type: Amount or Packs/day: How Many Years: Alcohol Use: No Frequency: Quant:
== END | disposition home or self-care (01) ==
LOC: PAIN 11:02
PROVIDERS: ATTEND Anesthesiology Pain Medicine
DX: M25.552 Pain in left hip (principal); M16.0 Bilateral primary osteoarthritis of hip; I13.0 Hypertensive heart and chronic kidney disease with heart failure and stage 1 through stage 4 chronic kidney disease, or unspecified chronic kidney disease; N18.9 Chronic kidney disease, unspecified; I50.9 Heart failure, unspecified; F43.21 Adjustment disorder with depressed mood; Z98.890 Other specified postprocedural states; Z86.711 Personal history of pulmonary embolism; Z79.899 Other long term (current) drug therapy; Z88.2 Allergy status to sulfonamides; Z88.8 Allergy status to other drugs, medicaments and biological substances

== ENCOUNTER → 2021-05-21 | Outpatient (CLI) | payer OTHER ==
[~2021-05-21] VITALS: Ht 157.5 cm; Wt 49.9 kg
[2021-05-21 13:19] VITALS: BP 115/58
--- NOTE | 2021-05-21 13:31 | NUR ---
Pain Clinic Assessment: 1. History of Osteoarthritis: SPINE History of Rheumatoid Arthritis: HANDS WRIST 2. Height: 5 ft. 2 in. 157.5 cm. Weight: 110.0 lb. oz. 49.896 kg. Patient's BMI: 20.1 3. Vital Signs: BP: 115/58 Pulse: 60 Resp: 14 Temp: 02 Sat: 100 ECG Mon: 4. Pain Intensity: 5 5. Fall Risk: Dizziness: N Needs help standing or walking: Y Fallen in the last 3 months: Y Fall risk comments: 6. Patient on Blood Thinner: None 7. History of Hypertension: Y 8. Opioid Therapy greater than 6 weeks: Y Opiate Contract Signed: 9. Risk Assessment Tool Provided: LOW-3 10. Functional Assessment Tool: 70/70 11. Recreational Drug Use: Never Drug Type: Tobacco Use: Never Smoker Tobacco Type: Amount or Packs/day: How Many Years: Alcohol Use: No Frequency: Quant:
== END | disposition home or self-care (01) ==
LOC: PAIN 12:05
PROVIDERS: ATTEND Anesthesiology Pain Medicine
DX: M17.12 Unilateral primary osteoarthritis, left knee (principal); G89.29 Other chronic pain; M19.90 Unspecified osteoarthritis, unspecified site; J44.9 Chronic obstructive pulmonary disease, unspecified; Z98.890 Other specified postprocedural states; Z79.899 Other long term (current) drug therapy; Z88.2 Allergy status to sulfonamides; Z88.8 Allergy status to other drugs, medicaments and biological substances

== ENCOUNTER → 2021-08-10 | Outpatient (CLI) | payer OTHER ==
[~2021-08-10] VITALS: Ht 157.5 cm; Wt 54.2 kg
[2021-08-10 13:39] VITALS: BP 115/69
--- NOTE | 2021-08-10 13:55 | NUR ---
Pain Clinic Assessment: 1. History of Osteoarthritis: SPINE History of Rheumatoid Arthritis: HANDS WRIST 2. Height: 5 ft. 2 in. 157.5 cm. Weight: 119.4 lb. oz. 54.159 kg. Patient's BMI: 21.8 3. Vital Signs: BP: 115/69 Pulse: 90 Resp: 14 Temp: 02 Sat: 100 ECG Mon: 4. Pain Intensity: 5 5. Fall Risk: Dizziness: N Needs help standing or walking: Y Fallen in the last 3 months: N Fall risk comments: 6. Patient on Blood Thinner: None 7. History of Hypertension: Y 8. Opioid Therapy greater than 6 weeks: Y Opiate Contract Signed: 9. Risk Assessment Tool Provided: LOW-3 10. Functional Assessment Tool: 70/70 11. Recreational Drug Use: Never Drug Type: Tobacco Use: Never Smoker Tobacco Type: Amount or Packs/day: How Many Years: Alcohol Use: No Frequency: Quant:
== END | disposition home or self-care (01) ==
LOC: PAIN 08:37
PROVIDERS: ATTEND Anesthesiology Pain Medicine
DX: M70.62 Trochanteric bursitis, left hip (principal); M16.12 Unilateral primary osteoarthritis, left hip; G89.29 Other chronic pain; I10 Essential (primary) hypertension; M19.90 Unspecified osteoarthritis, unspecified site; J44.9 Chronic obstructive pulmonary disease, unspecified; Z98.890 Other specified postprocedural states; Z79.899 Other long term (current) drug therapy; Z88.2 Allergy status to sulfonamides; Z88.8 Allergy status to other drugs, medicaments and biological substances

== ENCOUNTER → 2021-09-03 | Outpatient (CLI) | payer OTHER ==
[~2021-09-03] VITALS: Ht 157.5 cm; Wt 53.3 kg
[~2021-09-03] MED LIST changes: +BUTRANS1 EACH INTRADERM
[2021-09-03 13:01] VITALS: BP 124/75
--- NOTE | 2021-09-03 13:11 | NUR ---
Pain Clinic Assessment: 1. History of Osteoarthritis: SPINE History of Rheumatoid Arthritis: HANDS WRIST 2. Height: 5 ft. 2 in. 157.5 cm. Weight: 117.6 lb. oz. 53.343 kg. Patient's BMI: 21.5 3. Vital Signs: BP: 124/75 Pulse: 79 Resp: 14 Temp: 02 Sat: 97 ECG Mon: 4. Pain Intensity: 7 5. Fall Risk: Dizziness: Y Needs help standing or walking: Y Fallen in the last 3 months: N Fall risk comments: 6. Patient on Blood Thinner: None 7. History of Hypertension: Y 8. Opioid Therapy greater than 6 weeks: Y Opiate Contract Signed: 9. Risk Assessment Tool Provided: LOW-3 10. Functional Assessment Tool: 70/70 11. Recreational Drug Use: Never Drug Type: Tobacco Use: Never Smoker Tobacco Type: Amount or Packs/day: How Many Years: Alcohol Use: No Frequency: Quant:
== END | disposition home or self-care (01) ==
LOC: PAIN 10:56
PROVIDERS: ATTEND Anesthesiology Pain Medicine
DX: M25.552 Pain in left hip (principal); M16.12 Unilateral primary osteoarthritis, left hip; G89.29 Other chronic pain; M19.90 Unspecified osteoarthritis, unspecified site; Z98.890 Other specified postprocedural states; Z79.899 Other long term (current) drug therapy; Z88.2 Allergy status to sulfonamides; Z88.8 Allergy status to other drugs, medicaments and biological substances

== ENCOUNTER → 2021-11-02 | Outpatient (CLI) | payer OTHER ==
[~2021-11-02] VITALS: Ht 157.5 cm; Wt 51.3 kg
[2021-11-02 14:39] VITALS: BP 115/56
--- NOTE | 2021-11-02 14:46 | NUR ---
Pain Clinic Assessment: 1. History of Osteoarthritis: SPINE History of Rheumatoid Arthritis: HANDS WRIST 2. Height: 5 ft. 2 in. 157.5 cm. Weight: 113.0 lb. oz. 51.256 kg. Patient's BMI: 20.7 3. Vital Signs: BP: 115/56 Pulse: 73 Resp: 16 Temp: 02 Sat: 100 ECG Mon: 4. Pain Intensity: 8 5. Fall Risk: Dizziness: N Needs help standing or walking: Y Fallen in the last 3 months: N Fall risk comments: 6. Patient on Blood Thinner: None 7. History of Hypertension: Y 8. Opioid Therapy greater than 6 weeks: Y Opiate Contract Signed: 9. Risk Assessment Tool Provided: LOW-3 10. Functional Assessment Tool: 70/70 11. Recreational Drug Use: Never Drug Type: Tobacco Use: Never Smoker Tobacco Type: Amount or Packs/day: How Many Years: Alcohol Use: No Frequency: Quant:
== END ==
LOC: PAIN 09:17
PROVIDERS: ATTEND Anesthesiology Pain Medicine
DX: M16.12 Unilateral primary osteoarthritis, left hip (principal); M47.816 Spondylosis without myelopathy or radiculopathy, lumbar region; M51.36 Other intervertebral disc degeneration, lumbar region; M48.061 Spinal stenosis, lumbar region without neurogenic claudication; G89.29 Other chronic pain; M25.552 Pain in left hip; I10 Essential (primary) hypertension; R53.1 Weakness; R53.81 Other malaise; J84.10 Pulmonary fibrosis, unspecified; Z79.899 Other long term (current) drug therapy; Z88.8 Allergy status to other drugs, medicaments and biological substances